=== PATIENT | female | born 2000 | race Caucasian/White ===

== ENCOUNTER 2023-03-21 08:46 | Outpatient (OUT) | payer MEDICAID, SELFPAY ==
--- NOTE | 2023-03-21 09:10 | ECG_ITS ---
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
--- NOTE | 2023-03-21 09:27 | P.GSHP_ITS ---
History of Present Illness History of Present Illness Chief complaint: Menorrhagia, Pelvic Pain, Dysmenorrhagia Narrative: Patient presents for preadmission testing. The patient reports since her last childbirth in August 2021, she has had unpredictable heavy vaginal bleeding. She states she also has daily lower pelvic pain. Review of Systems ROS Narrative REVIEW OF SYSTEMS: Negative except as stated in HPI, ten or more systems reviewed. Constitutional: No fever , chills, weakness ENT: No sore throat or epistaxis Cardiovascular: No edema, chest pain, palpitations, or activity intolerance Respiratory: No shortness of breath, cough, or wheezing Musculoskeletal: No joint pain or swelling Gastrointestinal: No abdominal pain, constipation, diarrhea, or vomiting Genitourinary: No dysuria or hematuria Neurological: No numbness, tingling, weakness, or headache Psychiatric: No mood changes PFSH PFS Medical History (Updated 03/21/23 @ 09:14 by Aletha Justice NP) Surgical History (Updated 03/21/23 @ 09:14 by Aletha Justice NP) Family History (Updated 03/21/23 @ 09:14 by Aletha Justice NP) Other Delayed recovery from anesthesia Family history of hypertension Family history of leukemia Family history of myocardial infarction Family history of stroke Social History (Updated 03/21/23 @ 09:11 by Aletha Justice NP) Within the past year, how often did you have a drink containing alcohol: monthly or less Smoking status: Never smoker Non-prescribed substance use: denies use Previous occupational history: [employer] Highest level of school completed/degree received: some college, no degree Meds Home Medications and Allergies Allergies Allergy/AdvReac Type Severity Reaction Status Date / Time No Known Drug Allergies Allergy Verified 03/21/23 09:10 Exam Narrative Exam Narrative: Constitutional: Awake, alert, comfortable, well-appearing, nontoxic, interactive, vital signs as charted Head: Normocephalic, atraumatic Neck: Supple, normal appearance, normal range of motion, no meningeal signs, no lymphadenopathy Respiratory: No respiratory distress, breath sounds clear Cardiovascular: Regular rate and rhythm, strong and regular heart tones Abdomen: Nontender, normal bowel sounds, soft, no CVA tenderness Musculoskeletal: Normal gait, no swelling or edema Skin: No rashes or induration, no lesions, only visible skin inspected Neuro: No neurological deficits, normal sensation Psychiatric: Oriented ?3, normal affect Assessment and Plan Assessment and Plan (1) Dysmenorrhea: (2) Menorrhagia: (3) Pelvic pain: Plan Diagnostic laparoscopy, possible MALLORY, possible FOE, possible bilateral salpingo- oophorectomy scheduled with Dr. Alfaro 04/01/2023.
== END 2023-03-21 08:47 | disposition home or self-care (01) ==
LOC: PST 08:47
PROVIDERS: Visit Provider Obstetrics & Gynecology
DX: Z01.810 Encounter for preprocedural cardiovascular examination (principal); Z01.812 Encounter for preprocedural laboratory examination; N92.1 Excessive and frequent menstruation with irregular cycle; N94.6 Dysmenorrhea, unspecified; R10.2 Pelvic and perineal pain
CPT/HCPCS: 93005; G0463

== ENCOUNTER 2023-04-01 09:57 | Day surgery (SDC) | payer MEDICAID, SELFPAY ==
[2023-03-21 09:11] VITALS: BP 118/86; PULSE 83; RESP 18; TEMP 36.6; O2SAT 97; BMI 31.9
[2023-04-01] VITALS (18 sets, daily range): BP systolic 86–132; BP diastolic 39–89; PULSE 69–101; RESP 14–21; TEMP 36.1–36.2; O2SAT 95–99; BMI 31.9
[2023-04-01 10:07] LABS: Basophils Percent Auto 0.4 % (0.2-2.0); Eosinophils Absolute Auto 0.3 10^3/uL (0.0-0.7); Eosinophils Percent Auto 5.8 % (0.9-7.0); Hematocrit 42.3 % (36.0-48.0); Hemoglobin 14.1 g/dL (12.0-16.0); Immature Granulocytes Abs Auto 0.03 10^3/uL (0.00-0.03); Immature Granulocytes Pct Auto 0.6 % (0.0-0.5); Lymphocytes Absolute Auto 1.4 10^3/uL (1.2-3.8); Lymphocytes Percent Auto 26.7 % (20.5-60.0); Mean Corpuscular HGB Conc 33.3 g/dL (29.9-35.2); Mean Corpuscular Hemoglobin 30.1 pg (26.7-34.0); Mean Corpuscular Volume 90.2 fL (81.0-99.0); Mean Platelet Volume 8.6 fL (9.5-13.5); Monocytes Absolute Auto 0.4 10^3/uL (0.3-0.8); Monocytes Percent Auto 7.6 % (1.7-12.0); Neutrophils Absolute Auto 3.2 10^3/uL (1.4-6.5); Neutrophils Percent Auto 58.9 % (43.0-75.0); Platelet Count 212 10^3/uL (150-450); Red Blood Count 4.69 10^6/uL (4.20-5.40); Red Cell Distribution Width 12.5 % (11.0-15.0); White Blood Count 5.4 10^3/uL (4.0-11.0)
[2023-04-01 10:28] LABS: HCG Quantitative <1 mIU/mL
[2023-04-01] MEDS: LACTATED RINGER'S SOLUTION 1,000 ML 50 ML IV ×2 (10:39→13:25)
--- NOTE | 2023-04-01 12:22 | PC.NURSE ---
50 CC CLEAR YELLOW URINE FROM CATHETER
[2023-04-01] MEDS: MEPERIDINE HCL/PF 25 MG/ML VIAL IVP (12:36)
--- NOTE | 2023-04-01 12:43 | PM.ONB ---
Brief Operative Note Date of procedure: 04/01/23 Pre-op diagnosis: pelvic pain Post-op diagnosis: same Procedure: PROCEDURE: The patient was taken back to the Operating Room where she was placed in dorsal lithotomy position after given general anesthesia. The patient was prepped and draped in normal sterile fashion. A sponge stick was placed into the patient's vagina. Attention was turned to the patient's abdomen, where a small umbilical incision was made. The fascia was tented using Kaleigh clamps and the fascia was entered sharply. Confirmation of intraabdominal placement of the 10 mm port was confirmed under direct visualization using a laparoscope. The patient's abdomen was then insufflated using CO2 gas with approximately 4 liters. A second port was placed left laterally, this was done under direct visualization with a 5 mm port. Survey of the patient's abdomen demonstrated normal liver and gallbladder. Survey of the patient's pelvic anatomy demonstrated normal appearing ovaries and tubes as well as normal appearing uterus. No endometrial implants could be noted, no evidence of any pelvic disease was seen, normal appearing pelvic cavity. All instruments were removed from the patient's abdomen. The patient's abdomen was deinsufflated of CO2 gas. The patient tolerated the procedure well. Sponge stick was removed from the patient's vagina. The patient's infraumbilical fascia was closed using #0 Vicryl on a GI needle. The patient's skin was closed laterally and infraumbilically using 4-0 Vicryl. The patient tolerated the procedure well. Sponge, lap and needle counts were correct x 2. The patient was taken to Recovery Room in stable condition.Clips from prior surgery noted adhered to bladder, the clips were grasped and gently removed Anesthesia: ZENY Surgeon: Nasir Alfaro Knowledge Management Consultant: Urmila Kohler Estimated blood loss (mL): 10 Pathology: none sent Condition: stable Disposition: PACU
[2023-04-01] MEDS: HYDROMORPHONE HCL 0.5 MG/0.5 ML SYRINGE IV ×2 (12:44→13:10)
[2023-04-01] MEDS: HYDROCODONE/ACETAMINOPHEN 5-325 MG TABLET 1 TAB PO ×2 (13:05→14:22)
[2023-04-01] MEDS: PROMETHAZINE HCL 25 MG TABLET PO (13:56)
[2023-04-01] MEDS: PROMETHAZINE HCL 25 MG/ML VIAL 12.5 MG IV (14:22)
== END 2023-04-01 14:48 | disposition home or self-care (01) ==
PROVIDERS: Visit Provider Obstetrics & Gynecology
PROC: (CPT 840; principal; 2023-04-01 11:25)
DX: R10.2 Pelvic and perineal pain (principal); N94.6 Dysmenorrhea, unspecified; N92.1 Excessive and frequent menstruation with irregular cycle
CPT/HCPCS: 49320; 36415; 84702; 85025; J1170; J2704

== ENCOUNTER 2023-11-28 12:10 | Outpatient (OUT) | payer OTHER, SELFPAY | END 2023-11-28 12:11 | disposition home or self-care (01) | PROVIDERS: Visit Provider Obstetrics & Gynecology | DX: Z01.818 Encounter for other preprocedural examination (principal); Z30.2 Encounter for sterilization ==

== ENCOUNTER 2023-12-09 07:58 | Day surgery (SDC) | payer OTHER, SELFPAY ==
[2023-11-28 12:53] VITALS: BP 115/78; PULSE 76; RESP 16; TEMP 36.2; O2SAT 99; BMI 34.8
[2023-12-09] VITALS (16 sets, daily range): BP systolic 100–152; BP diastolic 53–95; PULSE 55–95; TEMP 36.1–36.4; O2SAT 85–100; BMI 34.8
--- OUTSIDE RECORDS SUMMARY | 2023-12-09 08:04 | XMS_ITS | CCD ---
Author Organization [facility] Care Team Providers Care Cable Weaver Name Role Phone DOMINIC ., DR PAREDES Admitting Unavailable DOMINIC ., DR PAREDES Attending Unavailable ALMA, DR BAY Primary Care Unavailable DOMINIC ., DR PAREDES Consulting Unavailable DOMINIC ., DR PAREDES Admitting Unavailable DOMINIC ., DR PAREDES Attending Unavailable ALMA, DR BAY Primary Care Unavailable DOMINIC ., DR PAREDES Consulting Unavailable DOMINIC ., DR PAREDES Admitting Unavailable DOMINIC ., DR PAREDES Attending Unavailable ALMA, DR BAY Primary Care Unavailable Nahed Beach Consulting Unavailable DOMINIC ., DR PAREDES Consulting Unavailable ALMA, DR BAY Primary Care Unavailable JESS, DR WOODY Nuno Admitting Unavailable MERCADO, DR WOODY Nuno Attending Unavailable JESS, DR WOODY Nuno Consulting Unavailable ALMA, DR BAY Primary Care Unavailable HAY ., DR WILSON Admitting Unavailable HAY ., DR WILSON Attending Unavailable ZIEBER, DR ASHLEY Nuno Consulting Unavailable HAY ., DR WILSON Consulting Unavailable ALMA, DR BAY Primary Care Unavailable HAY ., DR WILSON Admitting Unavailable HAY ., DR WILSON Attending Unavailable HAY ., DR WILSON Consulting Unavailable PETER HOPPER Consulting Unavailable Lorin Christina Unavailable Urmial Osborn Unavailable Ezra Marquez MD Primary Care Provider IRVING JOHNSON Attending Unavailable DOMINICLENA Attending Unavailable DOMINICLENA Attending Unavailable Allergies Allergy Classification Reported Allergen(s) Allergy Type Date of Onset Reaction(s) Facility (1 source) butylvinal Drug Allergy [facility] Repository (1 source) Desonide Drug Allergy [facility] (2 sources) vinyl gloves Propensity to adverse reactions anaphylaxis [facility] Other Medications Current Medications Medication Drug Class(es) Dates Sig (Normalized) Sig (Original) Ethinyl Estradiol / Levonorgestrel (4 sources) Progestin, Estrogen, Progestin-containin g Intrauterine Device Start: 01-05-2023 take 1 tablet by mouth in the morning Jolessa 0.15-0.03 MG tablet Take 1 tablet by mouth in the morning. 0 01/05/2023 Active Setlakin 0.15-0. 03 MG Oral for 91 Days Active fluticasone propionate 0.05 mg/actuat metered dose nasal spray (3 sources) Corticosteroid Start: 04-09-2020 take 1 spray(s) nasal route once daily Fluticasone Propionate 50 MCG/ACT 1 spray in each nostril Nasally Once a day for 10 days Jul, Active Completed/Discontinued Medications Medication Drug Class(es) Dates Sig (Normalized) Sig (Original) acetaminophen 325 mg / HYDROcodone bitartrate 5 mg oral tablet (2 sources) Opioid Agonist take 1 tablet by mouth every four hours HYDROcodone-Acetam inophen 5-325 MG TAKE 1 TABLET BY MOUTH EVERY 4 HOURS Oral for 3 Days Not-Taking azithromycin 500 mg oral tablet (2 sources) Macrolide Antimicrobial Azithromycin 500 MG Oral for 1 Days Not-Taking cetirizine hydrochloride 10 mg oral tablet (2 sources) Histamine-1 Receptor Antagonist Start: 04-09-2020 take 1 tablet by mouth every twenty-four hours Cetirizine HCl 10 MG 1 tablet Orally Once a day for 30 day(s) Mar, Not-Taking doxycycline hyclate 100 mg oral capsule (2 sources) Tetracycline-class Drug Doxycycline Hyclate 100 MG Oral for 14 Days Not-Taking Ethinyl Estradiol / Etonogestrel (2 sources) Progestin, Estrogen NuvaRing Not-Taking fluconazole 150 mg oral tablet (2 sources) Azole Antifungal Fluconazole 150 MG Oral for 6 Days Not-Taking ibuprofen 800 mg oral tablet (2 sources) Nonsteroidal Anti-inflammatory Drug Ibuprofen 800 MG Oral for 14 Days Not-Taking Ibuprofen 800 MG Oral for 14 Days Not-Taking metroNIDAZOLE 500 mg oral tablet (2 sources) Nitroimidazole Antimicrobial metroNIDAZOLE 500 MG Oral for 10 Days Not-Taking ondansetron 4 mg oral tablet (2 sources) Serotonin-3 Receptor Antagonist Ondansetron HCl 4 MG Oral for 14 Days Not-Taking predniSONE 20 mg oral tablet (2 sources) Start: 05-15-20 take 1 tablet by mouth every twelve hours predniSONE 20 MG 1 tablet Orally bid for 5 day(s) May, Not-Taking Problems Active Problems Problem Classification Problem Date Documented Date Episodic/Chronic Abdominal pain (6 sources) Left lower quadrant pain; Translations: [Unspecified abdominal pain] Onset: 10-21-2022 Episodic Contraceptive and procreative management (5 sources) Presence of (intrauterine) contraceptive device; Translations: [Patient encounter status] Onset: 10-25-2022 10-13-2023 Episodic Headache; including migraine (6 sources) Migraine; Translations: [Migraine, unspecified, not intractable, without status migrainosus] Onset: 09-14-2023 09-14-2023 Chronic Immunizations and screening for infectious disease (1 source) Encounter for screening for human papillomavirus (HPV); Translations: [ENC SCREENING HUMAN PAPILLOMAVIRUS] Onset: 01-06-2023 Episodic Inflammatory diseases of female pelvic organs (2 sources) Vulvovaginitis; Translations: [Acute vaginitis] Onset: 09-14-2023 09-14-2023 Episodic Menstrual disorders (5 sources) Excessive and frequent menstruation with irregular cycle; Translations: [Dysmenorrhea] Onset: 01-06-2023 09-14-2023 Chronic Nausea and vomiting (2 sources) Nausea and vomiting; Translations: [Nausea with vomiting, unspecified] Onset: 09-14-2023 09-14-2023 Episodic Noninfectious gastroenteritis (1 source) Noninfective gastroenteritis and colitis, unspecified; Translations: [NONINFECTIVE GE AND COLITIS UNS] Onset: 10-25-2022 Episodic Other aftercare (1 source) Other moth exterminator (current) drug therapy; Translations: [OTH RESIDENTIAL CURRENT DRUG THERAPY] Onset: 10-25-2022 Episodic Other connective tissue disease (2 sources) Fibromyalgia; Translations: [Fibromyalgia] Onset: 09-14-2023 09-14-2023 Episodic Other female genital disorders (2 sources) Pain on movement of cervix; Translations: [Unspecified condition associated with female genital organs and menstrual cycle] Onset: 09-14-2023 09-14-2023 Episodic Other nervous system disorders (2 sources) Spasmodic movement; Translations: [Fasciculation] Onset: 09-14-2023 09-14-2023 Episodic Other screening for suspected conditions (not mental disorders or infectious disease) (4 sources) Encounter for screening for malignant neoplasm of cervix; Translations: [ENC SCREENING MALIG NEOPLASM CERV] Onset: 01-05-2023 Episodic Other upper respiratory infections (3 sources) Acute pharyngitis, unspecified; Translations: [Acute upper respiratory infection, unspecified] Episodic Residual codes; unclassified (2 sources) Insomnia; Translations: [Insomnia, unspecified] Onset: 09-14-2023 09-14-2023 Episodic Spondylosis; intervertebral disc disorders; other back problems (2 sources) Instability of lumbosacral joint; Translations: [Spinal instabilities, lumbosacral region] Onset: 09-14-2023 09-14-2023 Episodic Unclassified (2 sources) COUGH, UNSPECIFIED; Translations: [COUGH, UNSPECIFIED] Onset: 08-27-2022 Viral infection (1 source) COVID-19; Translations: [COVID-19] Onset: 08-27-2022 Past or Other Problems Problem Classification Problem Date Documented Da te Episodic/Chronic Chronic obstructive pulmonary disease and bronchiectasis (1 source) Bronchitis, not specified as acute or chronic; Translations: [BRONCHITIS NOT SPEC ACUTE/CHRON] Onset: 08-25-2022 Episodic Unclassified (1 source) COUGH, UNSPECIFIED; Translations: [COUGH, UNSPECIFIED] Onset: 08-25-2022 Results Test Name Value Interpretation Reference Range Facility HCG ( test) Ql (U)o n 10-18-2023 Interpretation and review of laboratory results Normal [facility] re Preg Test, Ur Negative [facility] Quick Strepon 05-15-2023 S. pyogenes Org specific cx Ql (Throat) Negative [facility] Other Quick Strep [facility] Other US PELVIS AND TRANSVAGon US PELVIS AND TRANSVAG EXAMINATION: US PELVIS AND TRANSVAG HISTORY: Excessive menstruation with irregular cycle COMPARISON: No relevant comparison available. FINDINGS: Transabdominal and transvaginal images The uterus is normal in size, contour and myometrial echotexture measuring 7.4 x 3.6 x 4.1 cm, anteverted. The endometrium measures 3 mm, normal. The right ovary is normal in appearance measuring 2.4 x 1.7 x 1.4 cm. Normal color and Doppler flow. The left ovary is normal in appearance measuring 1.6 x 2.2 x 1.8 cm. Normal color Doppler flow No free fluid IMPRESSION: Normal exam Electronically authenticated by: NAHED BEACH Date: 2023-01-21 10:33 [facility] PAP ACOG PANEL 2: 21 to 29on 01-13-2023 . . Normal [facility] Comment on above: Performed By: #### [id number] #### [facility] [address] [place] [address] Dr. Apollo Rey Age Gdln ACOG Testing - [facility] Comment on above: Performed By: #### [id number] #### [facility] [address] [place] [address] Dr. Apollo Rey DIAGNOSIS: Comment [facility] Comment on above: Result Comment: NEGA TIVE FOR INTRAEPITHELIAL LESION OR MALIGNANCY. Performed By: #### [id number] #### [facility] [address] [place] [address] Dr. Apollo Rey Methodology: Comment [facility] Comment on above: Result Comment: This liquid based ThinPrep(R) pap test was screened with the use of an image guided system. Performed By: #### [id number] #### [facility] [address] [place] [address] Dr. Apollo Rey Note: Comment [facility] Comment on above: Result Comment: The Pap smear is a screening test designed to aid in the detection of premalignant and malignant conditions of the uterine cervix. It is not a diagnostic procedure and should not be used as the sole means of detecting cervical cancer. Both false-positive and false-negative reports do occur. . Performed By: #### [id number] #### [facility] [address] [place] [address] Dr. Apollo Rey Performed by: Comment Normal [facility] [place] Comment on above: Result Comment: David Johnson, Garage Manager (ASCP) Performed By: #### [id number] #### [facility] [address] [place] [address] Dr. Apollo Rey Reflex Criteria: Comment Normal [facility] Comment on above: Result Comment: The HPV DNA reflex criteria were not met with this specimen result therefore, no HPV testing was performed. . Performed By: #### [id number] #### [facility] [address] [place] [address] Dr. Apollo Rey Specimen adequacy: Comment Normal [facility] Comment on above: Result Comment: Sati sfactory for evaluation. Endocervical and/or squamous metaplastic cells (endocervical component) are present. Performed By: #### [id number] #### [facility] [address] [place] [address] Dr. Apollo Rey CBC AUTO DIFFon 01-05-2023 BASO # 0.0 103/ul Normal 0.0-0.1 [facility] Comment on above: Performed By: #### C BC #### [facility] [address] [place] [address] Dr. Apollo Rey Basophils/100 WBC (Bld) 0.5 % Normal 0.2-2.0 [facility] Comment on above: Performed By: #### C BC #### [facility] [address] [place] [address] Dr. Apollo Rey EO # 0.3 103/ul Normal 0.0-0.7 [facility] Comment on above: Performed By: #### C BC #### [facility] [address] [place] [address] Dr. Apollo Rey Eosinophils/100 WBC (Bld) 3.5 % Normal 0.9-7.0 [facility] Comment on above: Performed By: #### C BC #### [facility] [address] [place] [address] Dr. Apollo Rey Erythrocyte distribution width (RBC) [Ratio] 12.1 % Normal 11.0-15.0 [facility] Comment on above: Performed By: #### C BC #### [facility] [address] [place] [address] Dr. Apollo Rey Hematocrit (Bld) [Volume fraction] 41.0 % Normal 36.0-48.0 [facility] Comment on above: Performed By: #### C BC #### [facility] [address] [place] [address] Dr. Apollo Rey Hemoglobin (Bld) [Mass/Vol] 13.8 g/dL Normal 12.0-16.0 [facility] Comment on above: Performed By: #### C BC #### [facility] [address] [place] [address] Dr. Apollo Rey IG # 0.03 10e3/ul Normal 0.00-0.03 [facility] Comment on above: Performed By: #### C BC #### [facility] [address] [place] [address] Dr. Apollo Rey IG % 0.4 % Normal 0.0-0.5 [facility] Comment on above: Performed By: #### C BC #### [facility] [address] [place] [address] Dr. Apollo Rey LYMPH # 1.9 103/ul Normal 1.2-3.8 [facility] Comment on above: Performed By: #### C BC #### [facility] [address] [place] [address] Dr. Apollo Rey Lymphocytes/100 WBC (Bld) 23.0 % Normal 20.5-60.0 [facility] Comment on above: Performed By: #### C BC #### [facility] [address] [place] [address] Dr. Apollo Rey MANUAL DIFF REQ NO Normal [facility] Comment on above: Performed By: #### C BC #### [facility] [address] [place] [address] Dr. Apollo Rey MCH (RBC) [Entitic mass] 30.4 pg Normal 26.7-34.0 [facility] Comment on above: Performed By: #### C BC #### [facility] [address] [place] [address] Dr. Apollo Rey MCHC (RBC) [Mass/Vol] 33.7 g/dL Normal 29.9-35.2 [facility] Comment on above: Performed By: #### C BC #### [facility] [address] [address] [address] Apollo Rey MCV (RBC) [Entitic vol] 90.3 fL Normal 81.0-99.0 [facility] Comment on above: Performed By: #### C BC #### [facility] [address] [place] [address] Dr. Apollo Rey MONO # 0.5 103/ul Normal 0.3-0.8 [facility] Comment on above: Performed By: #### C BC #### [facility] [address] [place] [address] Dr. Apollo Rey Monocytes/100 WBC (Bld) 6.3 % Normal 1.7-12.0 [facility] Comment on above: Performed By: #### C BC #### [facility] [address] [place] [address] Dr. Apollo Rey NEUT # 5.3 103/ul Normal 1.4-6.5 [facility] Comment on above: Performed By: #### C BC #### [facility] [address] [place] [address] Dr. Apollo Rey Neutrophils/100 WBC (Bld) 66.3 % Normal 43.0-75.0 [facility] Comment on above: Performed By: #### C BC #### [facility] [address] [address] [address] Apollo Rey Platelet mean volume (Bld) [Entitic vol] 9.0 fL Critically low 9.5-13.5 [facility] Comment on above: Performed By: #### C BC #### [facility] [address] [place] [address] Dr. Apollo Rey PLT 239 103/ul Normal 150-450 [facility] Comment on above: Performed By: #### C BC #### [facility] [address] [place] [address] Dr. Apollo Rey RBC 4.54 106/ul Normal 4.20-5.40 [facility] Comment on above: Performed By: #### C BC #### [facility] [address] [place] [address] Dr. Apollo Rey WBC 8.0 103/ul Normal 4.0-11.0 [facility] Comment on above: Performed By: #### C BC #### [facility] [address] [place] [address] Dr. Apollo Rey Cytology Cervical or vaginal smear or scraping studyon 01-05-2023 [facility] FREE T4on 01-05-2023 Free T4 [Mass/Vol] 0.95 ng/dL Normal 0.76-1.46 [facility] Comment on above: Performed By: #### F T4 #### [facility] [address] [place] [address] Dr. Apollo Rey GLYCOHEMOGLOBIN A1Con 2022 ADA RECOMMENDATION SEE BELOW Normal [facility] Comment on above: Result Comment: ADA RECOMMENDED LIMIT 4.0 - 6.0 ADA THERAPEUTIC TARGET < 7.0 ACTION SUGGESTED > 7.0 Performed By: #### [id number] #### [facility] [address] [place] [address] Dr. Apollo Rey Glucose [Mass/Vol] 105 mg/dL Normal [facility] Comment on above: Performed By: #### [id number] #### [facility] [address] [place] [address] Dr. Apollo Rey HbA1c (Bld) [Mass fraction] 5.3 % Normal 4.5-6.2 [facility] Comment on above: Performed By: #### 4 [id number] #### [facility] [address] [place] [address] Dr. Apollo Rey PROTIMEon 01-05-2023 INR Coag (PPP) [Relative time] 0.95 {INR} Normal [facility] Comment on above: Performed By: #### 4 [id number] #### [facility] [address] [place] [address] Dr. Apollo Rey INR GUIDELINES SEE BELOW Normal [facility] Comment on above: Result Comment: RAY RED INR: 2.0 - 3.0 CONDITIONS NOT LISTED BELOW 2.5 - 3.5 FOR PROSTHETIC HEART VALVE REPLACEMENT 2.5 - 3.5 RECURRENT THROMBOSIS Performed By: #### 4 [id number] #### [facility] [address] [place] [address] Dr. Apollo Rey PT Coag (PPP) [Time] 10.1 s Normal 9.0-11.6 [facility] Comment on above: Performed By: #### 4 [id number] #### [facility] [address] [place] [address] Dr. Apollo Rey PTTon 01-05-2023 aPTT Coag (Bld) [Time] 29.0 s Normal 22.3-36.2 [facility] Comment on above: Performed By: #### 4 [id number] #### [facility] [address] [place] [address] Dr. Apollo Rey TSHon 01-05-2023 TSH 1.102 uIU/mL Normal 0.358-3.740 [facility] Comment on above: Performed By: #### T SH #### [facility] [address] [place] [address] Dr. Apollo Rey CBC AUTO DIFFon 10-21-2022 BASO # 0.0 103/ul Normal 0.0-0.1 [facility] Comment on above: Performed By: #### C BC #### [facility] [address] [place] [address] Dr. Apollo Rey Basophils/100 WBC (Bld) 0.4 % Normal 0.2-2.0 [facility] Comment on above: Performed By: #### C BC #### [facility] [address] [place] [address] Dr. Apollo Rey EO # 0.1 103/ul Normal 0.0-0.7 [facility] Comment on above: Performed By: #### C BC #### [facility] [address] [place] [address] Dr. Apollo Rey Eosinophils/100 WBC (Bld) 1.5 % Normal 0.9-7.0 [facility] Comment on above: Performed By: #### C BC #### [facility] [address] [place] [address] Dr. Apollo Rey Erythrocyte distribution width (RBC) [Ratio] 12.9 % Normal 11.0-15.0 [facility] Comment on above: Performed By: #### C BC #### [facility] [address] [place] [address] Dr. Apollo Rey Hematocrit (Bld) [Volume fraction] 38.2 % Normal 36.0-48.0 [facility] Comment on above: Performed By: #### C BC #### [facility] [address] [place] [address] Dr. Apollo Rey Hemoglobin (Bld) [Mass/Vol] 13.5 g/dL Normal 12.0-16.0 [facility] Comment on above: Performed By: #### C BC #### [facility] [address] [place] [address] Dr. Apollo Rey IG # 0.02 10e3/ul Normal 0.00-0.03 [facility] Comment on above: Performed By: #### C BC #### [facility] [address] [place] [address] Dr. Apollo Rey IG % 0.3 % Normal 0.0-0.5 [facility] Comment on above: Performed By: #### C BC #### [facility] [address] [place] [address] Dr. Apollo Rey LYMPH # 2.0 103/ul Normal 1.2-3.8 [facility] Comment on above: Performed By: #### C BC #### [facility] [address] [place] [address] Dr. Apollo Rey Lymphocytes/100 WBC (Bld) 26.3 % Normal 20.5-60.0 [facility] Comment on above: Performed By: #### C BC #### [facility] [address] [place] [address] Dr. Apollo Rey MANUAL DIFF REQ NO Normal [facility] Comment on above: Performed By: #### C BC #### [facility] [address] [address] [address] Apollo Rey MCH (RBC) [Entitic mass] 30.8 pg Normal 26.7-34.0 [facility] Comment on above: Performed By: #### C BC #### [facility] [address] [address] [address] Apollo Rey MCHC (RBC) [Mass/Vol] 35.3 g/dL Critically high 29.9-35.2 [facility] Comment on above: Performed By: #### C BC #### [facility] [address] [address] [address] Apollo Rey MCV (RBC) [Entitic vol] 87.0 fL Normal 81.0-99.0 [facility] Comment on above: Performed By: #### C BC #### [facility] [address] [place] [address] Dr. Apollo Rey MONO # 0.5 103/ul Normal 0.3-0.8 [facility] Comment on above: Performed By: #### C BC #### [facility] [address] [place] [address] Dr. Apollo Rey Monocytes/100 WBC (Bld) 6.4 % Normal 1.7-12.0 [facility] Comment on above: Performed By: #### C BC #### [facility] [address] [place] [address] Dr. Apollo Rey NEUT # 4.9 103/ul Normal 1.4-6.5 [facility] Comment on above: Performed By: #### C BC #### [facility] [address] [place] [address] Dr. Apollo Rey Neutrophils/100 WBC (Bld) 65.1 % Normal 43.0-75.0 [facility] Comment on above: Performed By: #### C BC #### [facility] [address] [place] [address] Dr. Apollo Rey Platelet mean volume (Bld) [Entitic vol] 8.8 fL Critically low 9.5-13.5 [facility] Comment on above: Performed By: #### C BC #### [facility] [address] [place], [place] [address] Dr. Apollo Rey PLT 206 103/ul Normal 150-450 [facility] Comment on above: Performed By: #### C BC #### [facility] [address] [place], [place] [address] Dr. Apollo Rye RBC 4.39 106/ul Normal 4.20-5.40 [facility] Comment on above: Performed By: #### C BC #### [facility] [address] [place], [place] [address] Dr. Apollo Rey WBC 7.5 103/ul Normal 4.0-11.0 [facility] Comment on above: Performed By: #### C BC #### [facility] [address] [place], [place] [address] ABD/PELV W CONon 10-21-[address] ABD/PELV W CON EXAM: CT SCAN OF THE ABDOMEN AND PELVIS WITH IV CONTRAST DATE OF EXAM: 10/21/2022 3:19 PM EST HISTORY: Left lower quadrant pain in a 22-year-old female COMPARISON: None. TECHNIQUE: CT examination of the abdomen and pelvis was performed following the intravenous administration of IV contrast. CT dose lowering techniques were used, to include: automated exposure control, adjustment for patient size, and/or use of iterative reconstruction. Contrast: 100 mL Omnipaque 300 FINDINGS: Lines and Tubes: None Lower Chest: Normal Free Air: None. Liver: Normal Gallbladder: Normal Common Bile Duct: Normal Pancreas: Normal Spleen: Normal Adrenal Glands: Right: Normal Left: Normal Kidneys: Right Kidney: Normal. Right Ureter: Normal. Left Kidney: Normal. Left Ureter: Normal. GI Tract: Stomach: Normal Small Bowel: Normal Appendix: Normal on axial image 102 of series 6 Large Bowel: Normal Mesentery/Peritoneum : Normal Vasculature: Aorta: Normal. IVC: Normal. Jayleen Vein: Normal. Retroperitoneum: Normal Abdominal/Pelvic Wall: Normal Bladder: Normal Reproductive: Uterus is anteflexed and tilted towards the left side of the pelvis. IUD is demonstrated. Right ovary demonstrates a fluid attenuating region that measures approximately 12.5 mm most likely a dominant follicle. Ovaries otherwise appear within normal limits allowing for volume averaging with bowel. Musculoskeletal: Normal. Free Fluid: None. IMPRESSION: 1. Uterus contains an IUD appears to be in adequate position. 2. Area decreased attenuation in the right ovary most likely represents a dominant follicle. However, please correlate with patient's beta hCG. If clinically indicated transvaginal ultrasound with spectral Doppler may help better delineate. 3. Normal appendix. 4. Otherwise unremarkable CT of the abdomen and pelvis for acute pathology. Electronically authenticated by: PETER HOPPER Date: 2022-10-21 17:45 Normal [facility] ER URINE PROFILEon 3 Bilirubin Ql (U) Negative Normal NEGATIVE The [facility] Comment on above: Performed By: #### [id number] #### [facility] [address] [place] [address] Dr. Apollo Rey Clarity (U) CLEAR Normal CLEAR [facility] Comment on above: Performed By: #### [id number] #### [facility] [address] [place] [address] Dr. Apollo Rey Color (U) LT. YELLOW Normal YELLOW [facility] Comment on above: Performed By: #### [id number] #### [facility] [address] [address] [address] Apollo TAVAREZ A micrscopic examination will be performed if indicated. Normal [facility] Comment on above: Performed By: #### [id number] #### [facility] [address] [address] [address] Apollo Rey Glucose Ql (U) Negative Normal NEGATIVE [facility] Comment on above: Performed By: #### 4 [id number] #### [facility] [address] [address] [address] Apollo Rey Hemoglobin Ql (U) Negative Normal NEGATIVE The [facility] Comment on above: Performed By: #### 4 [id number] #### [facility] [address] [place] [address] Dr. Apollo Rey Ketones Ql (U) Negative Normal NEGATIVE [facility] Comment on above: Performed By: #### 4 [id number] #### [facility] [address] [place] [address] Dr. Apollo Rey LEUKOCYTES TRACE Abnormal NEGATIVE [facility] Comment on above: Performed By: #### [id number] #### [facility] [address] [place] [address] Dr. Apollo Rey Nitrite Ql (U) Negative Normal NEGATIVE [facility] Comment on above: Performed By: #### 4 [id number] #### [facility] [address] [place] [address] Dr. Apollo Rey pH (U) 6.0 [pH] Normal 5-9 [facility] Comment on above: Performed By: #### 4 [id number] #### [facility] [address] [place] [address] Dr. Apollo Rey SPEC GRAVITY 1.020 Normal 1.005-<=1.025 [facility] Comment on above: Performed By: #### 4 [id number] #### [facility] [address] [place] [address] Dr. Apollo Rey UA PROTEIN Negative Normal NEGATIVE/ TRACE [facility] Comment on above: Performed By: #### 4 [id number] #### [facility] [address] [place] [address] Dr. Apollo Rey UR MICRO IND NOT INDICATED Normal [facility] Comment on above: Performed By: #### 4 [id number] #### [facility] [address] [place] [address] Dr. Apollo Rey Urobilinogen Qn (U) 0.2 {Ирина'U}/dL Normal 0.2 - 1. 0 [facility] Comment on above: Performed By: #### 4 [id number] #### [facility] [address] [place] [address] Dr. Apollo Rey URon 10-21-2022 , QUAL Negative Normal NEGATIVE [facility] Comment on above: Performed By: #### P REGU #### [facility] [address] [place] [address] Dr. Apollo Rey PROF 14(COMP METB)on 023 Albumin [Mass/Vol] 4.1 g/dL Normal 3.4-5.0 [facility] Comment on above: Performed By: #### C MP #### [facility] [address] [place] [address] Dr. Apollo Rey Albumin/Globulin [Mass ratio] 1.2 {ratio} Normal [facility] Comment on above: Performed By: #### C MP #### [facility] [address] [address] [address] Apollo Rey ALP [Catalytic activity/Vol] 85 U/L Normal 46-116 [facility] Comment on above: Performed By: #### C MP #### [facility] [address] [address] [address] Apollo Rey ALT [Catalytic activity/Vol] 18 U/L Normal 14-59 [facility] Comment on above: Performed By: #### C MP #### [facility] [address] [place] [address] Dr. Apollo Rey Anion gap [Moles/Vol] 12.7 mmol/L Normal [facility] Comment on above: Performed By: #### C MP #### [facility] [address] [place] [address] Dr. Apollo Rey AST [Catalytic activity/Vol] 14 U/L Critically low 15-37 [facility] Comment on above: Performed By: #### C MP #### [facility] [address] [place] [address] Dr. Apollo Rey Bilirubin [Mass/Vol] 0.3 mg/dL Normal 0.2-1.0 [facility] Comment on above: Performed By: #### C MP #### [facility] [address] [place] [address] Dr. Apollo Rey Calcium [Mass/Vol] 8.8 mg/dL Normal 8.5-10.1 [facility] Comment on above: Performed By: #### C MP #### [facility] [address] [place] [address] Dr. Apollo Rey Chloride [Moles/Vol] 103 mmol/L Normal 98-107 [facility] Comment on above: Performed By: #### C MP #### [facility] [address] [address] [address] Apollo Rey CO2 [Moles/Vol] 24.9 mmol/L Normal 21.0-32.0 [facility] Comment on above: Performed By: #### C MP #### [facility] [address] [place] [address] Dr. Apollo Rey Creatinine [Mass/Vol] 0.72 mg/dL Normal 0.55-1.02 [facility] Comment on above: Performed By: #### C MP #### [facility] [address] [place] [address] Dr. Apollo Rey EGFR-AF CZECH >60 Normal >=60 [facility] Comment on above: Performed By: #### C MP #### [facility] [address] [place] [address] Dr. Apollo Rey EGFR-NON AF CZECH >60 Normal >=60 [facility] Comment on above: Performed By: #### C MP #### [facility] [address] [place] [address] Dr. Apollo Rey Globulin (S) [Mass/Vol] 3.4 g/dL Normal [facility] Comment on above: Performed By: #### C MP #### [facility] [address] [place] [address] Dr. Aopllo Rey Glucose [Mass/Vol] 96 mg/dL Normal 74-106 [facility] Comment on above: Performed By: #### C MP #### [facility] [address] [place] [address] Dr. Apollo Rey Potassium [Moles/Vol] 3.6 mmol/L Normal 3.5-5.1 [facility] Comment on above: Performed By: #### C MP #### [facility] [address] [place] [address] Dr. Apollo Rey Protein [Mass/Vol] 7.5 g/dL Normal 6.4-8.2 [facility] Comment on above: Performed By: #### C MP #### [facility] [address] [place] [address] Dr. Apollo Rey Sodium [Moles/Vol] 137 mmol/L Normal 136-145 [facility] Comment on above: Performed By: #### C MP #### [facility] [address] [address] [address] Apollo Rey Urea nitrogen [Mass/Vol] 9.0 mg/dL Normal 7.0-18.0 [facility] Comment on above: Performed By: #### C MP #### [facility] [address] [address] [address] Apollo Rey Urea nitrogen/Creatinine [Mass ratio] 12.5 mg/mg Normal [facility] Comment on above: Performed By: #### C MP #### [facility] [address] [place] [address] Dr. Apollo Rey Covid-19 PCR (CVDTB)on 08-12 SARS-CoV-2 (COVID-19) RNA TAYLOR+probe Ql (Unsp spec) Detected Critically abnormal NOT DETECTED [facility] Comment on above: Result Comment: This test is not yet approved or cleared by the [place] FDA. When there are no FDA-approved or cleared tests available, and other criteria are met, FDA can make tests available under an emergency access mechanism called an Emergency Use Authorization (EUA). The EUA for this test is supported by the [place] of Health and Human Service's declaration that circumstances exist to justify the emergency use of in vitro diagnostics for the detection and/or diagnosis of the virus that causes COVID-19. This EUA will remain in effect for the duration of the COVID-19 declaration justifying emergency of IVDs, unless it is terminated or revoked by the FDA (after which the test may no longer be used). Performed By: #### C VDTBH #### [facility] [address] [address] [address] Apollo Rey XR CHEST 2 Von 08-25-2022 XR CHEST 2 V EXAMINATION: XR CHEST 2 V HISTORY: SHORTNESS OF BREATH COMPARISON: XR chest 12/03/2018 FINDINGS: LUNGS: No significant pulmonary parenchymal abnormalities. VASCULATURE: No increased pulmonary vasculature. PLEURA: No pneumothorax, effusion, or pleural thickening. CARDIAC: No cardiomegaly or cardiac silhouette abnormality. MEDIASTINUM: No visible mass or adenopathy. BONES: No fracture or visible bone lesion. OTHER: Negative. IMPRESSION: 1. No acute cardiopulmonary process. Electronically authenticated by: ASHLEY HIGHTOWER Date: 2022-08-25 11:56 Normal [facility] INFLUENZA A AND B AGon 08-23 INFLUENZA A AG Negative Normal NEGATIVE SEE COMMENT [facility] Comment on above: Performed By: #### I NFLUAB #### [facility] [address] [address] [address] Apollo Rey INFLUENZA B AG Negative Normal NEGATIVE SEE COMMENT [facility] Comment on above: Performed By: #### I NFLUAB #### [facility] [address] [place] [address] Dr. Apollo Rey INTERNAL CONTROLS Within Normal Limits Normal Wi thin Normal Limits [facility] Comment on above: Performed By: #### I NFLUAB #### [facility] [address] [place] [address] Dr. Apollo Rey Vital Signs Date Time Vital Sign Value Performing Clinician Facility 10-18-2023 14:15-0500 Body mass index (BMI) [Ratio] 34.36 kg/m2 DAVIDsTEA DO Work Phone: [facility] 10-18-2023 14:15-0500 Body weight 102.51 kg Lena Dominic DO Work Phone: [facility] 10-18-2023 14:15-0500 Diastolic blood pressure 78 mm[Hg] Lena Dominic DO Work Phone: [facility] 10-18-2023 14:15-0500 Systolic blood pressure 126 mm[Hg] Lena Dominic DO Work Phone: [facility] 08-11-2023 14:30-0500 Body height 172.72 cm Urmila Osborn Other [facility] Other 08-11-2023 14:30-0500 Body mass index (BMI) [Ratio] 33.75 kg/m2 Urmila Osborn Other [facility] Other 08-11-2023 14:30-0500 Body temperature 97.7 [degF] Urmila Saundersarney Other [facility] Other 08-11-2023 14:30-0500 Body weight 100.7 kg Urmila Saundersarney Other [facility] Other 08-11-2023 14:30-0500 Respiratory rate 18 /min Urmila Saundersarney Other [facility] Other 08-11-2023 14:30-0500 SaO2% (BldA) [Mass fraction] 98 % Urmila Saundersarney Other [facility] Other 05-15-2023 10:35-0400 Body height 172.72 cm Lorin Christina Other [facility] Other 05-15-2023 10:35-0400 Body mass index (BMI) [Ratio] 34.97 kg/m2 Lorin Christina Other [facility] Other 05-15-2023 10:35-0400 Body temperature 97.5 [degF] Lorin Pottermond Other [facility] Other 05-15-2023 10:35-0400 Body weight 104.33 kg Lorin Pottermond Other [facility] Other 05-15-2023 10:35-0400 Diastolic blood pressure 86 mm[Hg] Lorin Pottermond Other [facility] Other 05-15-2023 10:35-0400 Respiratory rate 18 /min Lorin Christina Other [facility] Other 05-15-2023 10:35-0400 SaO2% (BldA) [Mass fraction] 97 % Lorin Carri Other [facility] Other 05-15-2023 10:35-0400 Systolic blood pressure 134 mm[Hg] Lorin Christina Other [facility] Other Encounters Encounter Date Encounter Type Care Provider Facility Start: 11-14-2023 End: 11-14-2023 ambulatory LENA DOMINIC Not Available Start: 10-18-2023 End: 10-18-2023 ambulatory LENA DOMINIC Not Available Start: 10-18-2023 End: 10-18-2023 Office outpatient visit 15 minutes Lena Alfaro DO Work Phone: [facility] Comment on above: control counse ling; Request for sterilization Start: 09-15-2023 End: 09-15-2023 ambulatory IRVING JOHNSON Not Available Start: 08-11-2023 End: 08-11-2023 ambulatory Urmila Osborn Other [facility] Other Start: 08-11-2023 Office outpatient vi sit 25 minutes Urmila Osborn [facility] Start: 05-15-2023 End: 05-15-2023 ambulatory Lorin Christina Other [facility] Other Start: 05-15-2023 Office outpatient ne w 20 minutes Lorin Christina [facility] Start: 01-21-2023 End: 01-22-[address] LENA ALFARO . Facility: Start: 01-05-2023 End: 01-05-[address] LENA ALFARO . Facility:[facility] Start: 01-05-2023 End: 01-06-[address] LENA ALFARO . Facility:[facility] Start: 10-21-2022 End: 10-21-[address] EZRA MARQUEZ Facility:[facility] Start: 08-25-2022 End: 08-25-[address] EZRA MARQUEZ Facility:[facility] Start: 08-23-2022 End: 08-23-[address] EZRA MARQUEZ Facility:[facility] Procedures Date Procedure Procedure Detail Performing Clinician Start: 10-18-2023 Urine test visual color cmprsn meths [facility] DO Work Phone: Start: 01-05-2023 Cytp cerv/vag auto t hin layer prep mnl screen [facility] DO Work Phone: Plan of Treatment Date Care Activity Detail Author Start: 03-11-2024 Influenza vaccination Influenza Vacc ine (#1) [facility] Comment on above: Postponed from 05/13 (Other Patient Reasons) Start: 01-17-2024 End: 01-17-2024 Patient encounter procedure 01/17/2024 8:30 AM EDT Office Visit [facility] [address] [place] [id number] Lena Alfaro DO [address] [place] [address] [facility] Start: 11-14-2023 End: 11-14-2023 Patient encounter procedure 11/14/2023 2:20 PM EST Consult [facility] [address] [facility] [place] [phone] Lena Alfaro DO [address] [place] [address] [facility] Immunizations Immunization Date Immunization Notes Care Provider [facility] 09-03-2021 diphtheria, tetanus tox[facility] and [facility]uss[facility] 03-19-2013 human papilloma viru s vaccine, quadrivalent [facility] 10-16-2012 human papilloma viru s vaccine, quadrivalent Lena Dominic DO Work Phone: [facility] 08-14-2012 human papilloma viru s vaccine, quadrivalent Lena Dominic DO Work Phone: [facility] 08-14-2012 meningococcal polysaccharide (groups A, C, Y and W-135) diphtheria toxoid conjugate vaccine (MCV4P) Lena Dominic DO Work Phone: [facility] 08-14-2012 tetanus toxoid, redu severiano diphtheria toxoid, and acellular pertussis vaccine, adsorbed Lena Dominic DO Work Phone: [facility] 11-23-2010 varicella virus vaccine Core y Dominic DO Work Phone: [facility] 03-03-2006 diphtheria, tetanus toxoids and acellular pertussis vaccine, unspecified formulation Lena Dominic DO Work Phone: [facility] 03-03-2006 measles, mumps and r ubella virus vaccine Lena Dominic DO Work Phone: [facility] 03-03-2006 poliovirus vaccine, inactivated Lena Dominic DO Work Phone: [facility] 08-10-2001 diphtheria, tetanus toxoids and acellular pertussis vaccine, unspecified formulation Lena Dominic DO Work Phone: [facility] 08-10-2001 haemophilus influenz ae type b vaccine, PRP-OMP conjugate Lena Dominic DO Work Phone: [facility] 08-10-2001 measles, mumps and r ubella virus vaccine Lena Dominic DO Work Phone: [facility] 08-10-2001 poliovirus vaccine, inactivated Lena Dominic DO Work Phone: [facility] 08-10-2001 varicella virus vaccine Core y Dominic DO Work Phone: [facility] 06-28-2001 influenza virus vacc ine, whole virus Lena Dominic DO Work Phone: [facility] 06-28-2001 influenza virus vacc ine, unspecified formulation Lena Dominic DO Work Phone: [facility] 02-03-2001 diphtheria, tetanus toxoids and acellular pertussis vaccine, unspecified formulation Lena Dominic DO Work Phone: [facility] 02-03-2001 haemophilus influenz ae type b conjugate and Hepatitis B vaccine Lena Dominic DO Work Phone: [facility] 2000 diphtheria, tetanus toxoids and acellular pertussis vaccine, unspecified formulation Lena Dominic DO Work Phone: [facility] 2000 poliovirus vaccine, inactivated Lena Dominic DO Work Phone: [facility] 2000 diphtheria, tetanus toxoids and acellular pertussis vaccine, unspecified formulation Lena Dominic DO Work Phone: [facility] 2000 haemophilus influenz ae type b vaccine, PRP-OMP conjugate Lena Domiinc DO Work Phone: [facility] 2000 poliovirus vaccine, inactivated Lena Dominic DO Work Phone: [facility] 2000 diphtheria, tetanus toxoids and acellular pertussis vaccine, unspecified formulation Lena Dominic DO Work Phone: [facility] 2000 haemophilus influenz ae type b vaccine, PRP-OMP conjugate Lena Dominic DO Work Phone: [facility] 2000 hepatitis B vaccine, pediatric or pediatric/adolescent dosage Lena Dominic DO Work Phone: [facility] 2000 poliovirus vaccine, inactivated Lena Dominic DO Work Phone: [facility] 2000 hepatitis B vaccine, pediatric or pediatric/adolescent dosage Lena Dominic DO Work Phone: [facility] Payers Date Payer Category Payer Medicaid [id number] 2022 Medicaid [id number] 2000 Unknown [id number] 2.16.84 [id number] 2000 Unknown [id number] 2.16.84 [id number] 2000 Unknown [id number] 2.16.84 [id number] 2000 Unknown [id number] 2.16.84 [id number] 2000 Unknown [id number] 2.16.84 [id number] 2000 Unknown [id number] 2.16.84 [id number] 2000 Unknown [id number] 2.16.84 [id number] 2000 Unknown [id number] 2.16.84 [id number] 2000 Unknown [id number] 1959 Unknown [id number] Social History Date Type Detail Facility Unknown if ever smoked [facility] Other Start: 09-14-2023 End: 09-15-2023 Sex Assigned At [facility] Start: 03-16-2023 Tobacco smoking stat [facility] Never smoked tobacco [facility] Start: 03-16-2023 Tobacco use and exposure Smokeless tobacco non-user [facility] Start: 10-18-2023 Alcohol intake Lifetime non-d karen (finding) [facility] Start: 09-14-2023 End: 09-15-2023 History of Social function [facility] Within the last year , have you been afraid of your partner or ex-partner? No [facility] How often do you attend anabaptist or latter day services? Patient refused [facility] Are you now , , , , never or living with a partner? Living with partner [facility] How often to you hav e a drink containing alcohol? 2-4 times a month [facility] How many standard drinks containing alcohol do you have on a typical day? 1 or 2 [facility] How often do you hav e 6 or more drinks on 1 occasion? Never [facility] Do you feel stress - tense, restless, nervous, or anxious, or unable to sleep at night because your mind is troubled all the time - these days [OSQ] Not at all [facility] (I/We) worried wheth er (my/our) food would run out before (I/we) got money to buy more. DK or Refused [facility] Start: 03-16-2023 Alcohol Comment caffeine: 1-2 cups/d ay [facility] Start: 2000 Sex Assigned At Female [facility] Start: 03-02-2023 Gender identity Identifies as female gender (finding) [facility] History of Present illness Narrative 10-18-2023 Kristina Loving LPN - 10/18/2023 2:10 PM EST Note Date & Type Note Facility 10-18-2023 History of Presen t illness Narrative Reason for Appointment: Patient ID: Ramirez Menard is a 23 y.o. female who presents for Contraception Patient presents today for Acute Visit appointment. Current Medications: has a current medication list which includes the following prescription(s): jolessa. Medical History: Active Ambulatory Problems Diagnosis Date Noted Cervical motion tenderness 09/14/2023 Dysmenorrhea 09/14/2023 Fibromyalgia 09/14/2023 Insomnia 09/14/2023 Menorrhagia with irregular cycle 09/14/2023 Migraine headache (CMS/HCC) 09/14/2023 Migraine without aura and without status migrainosus, not intractable (CMS/FORMERLY [facility]) 09/14/2023 Nausea and vomiting 09/14/2023 Pain in pelvis 09/14/2023 Spinal instability of lumbosacral region 09/14/2023 Twitching 09/14/2023 Vaginitis and vulvovaginitis 09/14/2023 Resolved Ambulatory Problems Diagnosis Date Noted No Resolved Ambulatory Problems Past Medical History: Diagnosis Date BMI 29.0-29.9,adult COVID-19 virus RNA test result positive at limit of detection 08/25/2022 Encounter for insertion of mirena IUD ETD (Eustachian tube dysfunction), left Family planning History of CT scan Intrauterine device surveillance Migraines (CMS/HCC) Well woman exam Family History Problem Relation Name Age of Onset Hypertension Mother Stroke Mother Allergies Father Stroke Maternal Grandfather Heart disease Maternal Grandfather Hypertension Paternal Grandfather Colon cancer Paternal Grandfather No Known Problems Daughter No Known Problems Son Social History Tobacco Use Smoking status: Never Smokeless tobacco: Never Substance Use Topics Alcohol use: Never Comment: caffeine: 1-2 cups/day Drug use: Yes Types: Marijuana Past Surgical History: Procedure Laterality Date ADENOIDECTOMY IUD INSERTION Mirena LAPAROSCOPY DIAGNOSTIC / BIOPSY / ASPIRATION / LYSIS 04/01/2023 diagnostic PAP SMEAR 12/01/2021 negative RI TONSILLECTOMY & ADENOIDECTOMY AGE 12/2011 No Known Allergies Review of Systems: Review of Systems Constitutional: Negative. HENT: Negative. Eyes: Negative. Respiratory: Negative. Cardiovascular: Negative. Gastrointestinal: Negative. Genitourinary: Negative. Musculoskeletal: Negative. Skin: Negative. Neurological: Negative. All other systems reviewed and are negative. Hematological: Negative. Endocrine: Negative. Allergic/Immunologic: Negative. Objective Physical Exam Constitutional: Appearance: Normal appearance. She is well-developed. Cardiovascular: Rate and Rhythm: Normal rate and regular rhythm. Pulmonary: Effort: Pulmonary effort is normal. Breath sounds: Normal breath sounds. Abdominal: General: Bowel sounds are normal. There is no distension. Palpations: Abdomen is soft. Tenderness: There is no abdominal tenderness. There is no guarding or rebound. Musculoskeletal: General: No swelling. Normal range of motion. Right lower leg: No edema. Left lower leg: No edema. Neurological: Mental Status: She is alert and oriented to person, place, and time. Skin: General: Skin is warm and dry. Psychiatric: Mood and Affect: Mood normal. Behavior: Behavior normal. Vitals and nursing note reviewed. Exam conducted with a rail maintenance worker present. Vitals: Estimated body mass index is 34.36 kg/m as calculated from the following: Height as of 03/03/23: 5' 8 . Weight as of this encounter: 226 lb. BP: 126/78 No LMP recorded (lmp unknown). Assessment/Plan Encounter Diagnoses Name Primary? control counseling Request for sterilization Pt desires permanent sterilization. Patient does not want anymore children. The patient understands the procedure is considered permanent and not reversible. Failure rates reviewed with patient. Alternatives discussed. ODJFS Consent obtained and reviewed. Will perform robotic laparoscopic bilateral salpingectomy. Documented by Kristina Loving LPN on behalf of: Lena Alfaro DO documented in this encounter [facility] Evaluation note 08-11-2023 Note Date & Type Note Facility 08-11-2023 Evaluation note Encounter Date Diagnosis Assessment Notes Jul, Viral upper respiratory illness (ICD-10 - J06.9) Illness appears to be viral in nature. Instructed patient to use Flonase nasal spray to relieve nasal congestion. OTC sinus medication per lable instructions. Instructed patient to increase fluid intake and rest. If symptoms continue greater than 7 to 10 days follow up with PCP. All questions and concerns addressed. Patient verbalizes understanding . [facility] Other Evaluation note 05-15-2023 Note Date & Type Note Facility 05-15-2023 Evaluation note Encounter Date Diagnosis Assessment Notes May, Sore throat (ICD-10 - J02.9) May, Pharyngitis, unspecified etiology (ICD-10 - J02.9) Drink plenty fluids, get plenty of rest. Take Tylenol or Motrin as needed for aches pains or fevers. Take the prednisone as prescribed until gone. Follow-up with your family physician if no improvement in 2 to 3 days [facility] Other Evaluation note Note Date & Type Note Facility Evaluation note Diagnosis control counseling Request for sterilization documented in this encounter [facility] History general Narrative - Reported Note Date & Type Note Facility History general Narrative - Reported Type Medical History Migraine Medical History Fibromyalgia Surgical History adenoidectomy Surgical History laparoscopy [facility] Other Summary Purpose Family History No Family History Records FoundNo Family History Records Found Advance Directives No Advanced Directives Records FoundNo Advanced Directives Records Found Additional Source Comments INFORMATION SOURCE (unrecogn ized section and content) DATE CREATED AUTHOR 01/23/2023 [facility] DATE CREATED AUTHOR AUTHOR'S ORGANIZ ATION 11/15/2023 [facility] EPIC REASON FOR VISIT (unrecogniz ed section and content) Reason Comments Contraception Care Teams (unrecognized sec tion and content) Cable [employer] Relationship Specialty Start Date End Date Ezra Marquez MD [address] [facility] [address] [place] [address] PCP - General Family Medicine 03/03/23 FOR RECORDS PERTAINING TO PATIENTS WHO ARE OR HAVE BEEN ENROLLED IN A CHEMICAL DEPENDENCY/SUBSTANCEABUSE PROGRAM, SOME INFORMATION MAY BE OMITTED. This clinical summary was aggregated from multiple sources. Caution should be exercised in using it in the provision of clinical care. This summary normalizes information from multiple sources, and as a consequence, information in this document may materially change the coding, format and clinical context of patient data. In addition, data may be omitted in some cases. CLINICAL DECISIONS SHOULD BE BASED ON THE PRIMARY CLINICAL RECORDS. [employer] [facility]. provides no warranty or guarantee of the accuracy or completeness of information in this document.
[2023-12-09 08:17] LABS: Basophils Percent Auto 0.5 % (0.2-2.0); Eosinophils Absolute Auto 0.4 10^3/uL (0.0-0.7); Eosinophils Percent Auto 7.5 % (0.9-7.0); Hematocrit 42.2 % (36.0-48.0); Immature Granulocytes Abs Auto 0.02 10^3/uL (0.00-0.03); Immature Granulocytes Pct Auto 0.4 % (0.0-0.5); Lymphocytes Absolute Auto 1.7 10^3/uL (1.2-3.8); Lymphocytes Percent Auto 31.8 % (20.5-60.0); Mean Corpuscular HGB Conc 33.2 g/dL (29.9-35.2); Mean Corpuscular Volume 90.4 fL (81.0-99.0); Mean Platelet Volume 8.8 fL (9.5-13.5); Monocytes Absolute Auto 0.4 10^3/uL (0.3-0.8); Monocytes Percent Auto 7.1 % (1.7-12.0); Neutrophils Absolute Auto 2.9 10^3/uL (1.4-6.5); Neutrophils Percent Auto 52.7 % (43.0-75.0); Platelet Count 228 10^3/uL (150-450); Red Blood Count 4.67 10^6/uL (4.20-5.40); Red Cell Distribution Width 12.1 % (11.0-15.0); White Blood Count 5.5 10^3/uL (4.0-11.0)
[2023-12-09 08:38] LABS: HCG Quantitative <1 mIU/mL
[2023-12-09] MEDS: LACTATED RINGER'S SOLUTION 1,000 ML 50 ML IV (09:08)
[2023-12-09] MEDS: SCOPOLAMINE 1 MG/3 DAYS TRANSDERM PATCH 1 PATCH TD (10:28)
--- NOTE | 2023-12-09 11:17 | P.ON_ITS ---
Brief Operative Note Date of procedure: 12/09/23 Pre-op diagnosis general: multiparity, desires permanent sterilization Post-op diagnosis: same as pre-op Procedure: NAME OF PROCEDURE: robotic assisted bilateral laparoscopic salpingectomy PROCEDURE: The patient was taken back to the Operating Room where she was given general anesthesia without difficulty. She was then prepped and draped in the normal sterile fashion after being placed in a dorsal lithotomy position. A wet sponge stick was placed into the patient's vagina. Attention was then turned to the patient's abdomen, where a scalpel was used to make a small infraumbilical incision. The S retractors were then used to dissect the underlying layers until the fascia could be seen. The fascia was then grasped with [place] clamps and tented up. A knife was then used to make a small incision to the fascia. The muscle was identified, at that time two sutures of #0 Vicryl on a GI needle was then used and placed through the fascia. the peritoneum was then identified and entered bluntly. The 10-4 Bentley was then placed into the patient's abdomen. This was confirmed with direct visualization of the bowel, using the laparoscope. The patient's abdomen was then insufflated using approximately 4 liters of CO2 gas. Survey of the patient's abdomen demonstrated ovaries were normal in appearance as well as both tubes and uterus. A second and third rt and lt lateral robotic ports which were 8 mm in size, was then placed after the skin incision was made under direct visualization . the robotic arms were engaged. The patient's tube on the patient's right side was identified and tented up using a grasper, the ligasure apparatus was then used to come across the mesosalpingx from the fimbriated end to the insertion site at the uterus, the tube was then amputated and removed in its entirety. This was done on the contralateral side. The tubes were the removed from the patients abdomen. Excellent hemostasis was noted. The lateral ports were then moved under direct visualization with excellent hemostasis. All instruments were removed from the patient's abdomen. The fascia was closed using the #0 Vicryl on GI needle. The skin was closed using 4-0 Vicryl subcuticularly. All instruments were removed from the patient's vagina as well. The patient was taken out of the dorsal lithotomy position and placed in the supine position and taken to recovery in s table condition. Sponge, lap and needle counts were correct x2. Anesthesia: BETHA Surgeon: Nasir Alfaro Manager Clinical Applications: Bronwyn Munguia Estimated blood loss (mL): 5 Pathology: other (tubes) Condition: stable Disposition: PACU Urinary Catheter Management Urinary Catheter Management Urethral: Cath placed during this visit: no
[2023-12-09] MEDS: MIDAZOLAM HCL 2 MG/2 ML VIAL IV (11:41)
[2023-12-09] MEDS: HYDROMORPHONE HCL 0.5 MG/0.5 ML SYRINGE IV ×2 (11:41→12:04)
[2023-12-09] MEDS: HYDROCODONE/ACET 5-325 MG TABLET 1 TAB PO (12:04)
[2023-12-09] MEDS: PROMETHAZINE HCL 25 MG TABLET PO (12:26)
--- NOTE | 2023-12-09 13:38 | PC.NURSE ---
1325: pt ambulates to bathroom with stand by assistance and voids without difficulty.
== END 2023-12-09 13:30 | disposition home or self-care (01) ==
PROVIDERS: Visit Provider Obstetrics & Gynecology
PROC: (CPT 840; principal; 2023-12-09 09:30)
DX: Z30.2 Encounter for sterilization (principal); M79.7 Fibromyalgia; G47.00 Insomnia, unspecified
CPT/HCPCS: 58661; 36415; 84702; 85025; 88302; 99999; J1094; J1170; J2704

== ENCOUNTER 2024-01-17 21:47 | Outpatient (REF) | payer OTHER, SELFPAY ==
--- OUTSIDE RECORDS SUMMARY | 2024-01-17 21:54 | XMS_ITS | CCD ---
Author Organization [facility] Care Team Providers Care Aircraft Delivery Checker Name Role Phone DOMINIC ., DR PAREDES [...] PETER HOPPER Consulting Unavailable Lorin Christina Unavailable Urmila Osborn Unavailable Ezra Marquez MD Primary Care Provider [phone] IRVING JOHNSON Attending Unavailable LENA ALFARO Attending Unavailable LENA ALFARO Attending Unavailable AlmaEzra hull Primary Care Unavailable Lena Alfaro Attending Unavailable Lena Alfaro Admitting Unavailable Allergies Allergy Classification Reported Allergen(s) Allergy Type Date of Onset Reaction(s) Facility (1 source) butylvinal Drug Allergy [facility] Repository (1 source) Desonide Drug Allergy [facility] Repository (2 sources) vinyl gloves Propensity to adverse reactions anaphylaxis [facility] Other (1 source) vinyl ether Drug allergy (disorder) 3 [facility] Repository Medications Current Medications Medication Drug Class(es) Dates [...] 10-25-2022 Episodic Other aftercare (1 source) Other exterminator helper termite (current) drug therapy; Translations: [OTH DRUG SAFETY SPECIALIST CURRENT DRUG THERAPY] Onset: 10-25-2022 Episodic Other [...] Test Name Value Interpretation Reference Range Facility [facility] 12-09-2023 L Specimen: [id number] Received: 12/09/23 Status: [facility] Re Num: [id number] Spec Type: Surgical Subm Dr: Lena Alfaro Tissues: A Fallopian Tube - Sterilization (BILATERAL FT) Procedures: HE/2, Gross/Micro L2 Age/ Patient Sex Location Account Attending Physician Ramirez Dunaway 23/F LABELL [id number] Lena Alfaro SPEC NUM: [id number] RECD: 12/09/23 STATUS: SOUT RE NUM: [id number] ROSARIO: 12/09/23-[address]: Lena Alfaro ENTERED: 12/09/23-1350 [facility] DR: Isaac,Lab SPEC TYPE: Surgical DEPT: EUGENIO SLAUGHTER ORDERED: HE/2, Gross/Micro L2 ORDERED: HE/2, Gross/Micro L2 Pathological Diagnosis Bilateral Fallopian Tubes, Resection: Paratubal cyst. Clinical Information Request for sterilization Gross Description Received in formalin labeled with the patient's name, date of and bilateral fallopian tubes are two castellon-pink fimbriated fallopian tubes measuring 5.7 x 0.7 x 0.3 cm (inked blue) and 5.5 x 0.8 x 0.4 cm. Each has a pinpoint lumen on cut section. Additionally received within the same container is a 1.2 x 0.5 x 0.2 cm hood-white membranous tissue. Livestock Producer sections are submitted in two cassettes labeled A1-A2. CPT Codes 27244 Specimen: [id number] Received: 12/09/23 Status: [facility] Num: [id number] Spec Type: Surgical Subm Dr: Lena Alfaro Tissues: A Fallopian Tube - Sterilization (BILATERAL FT) Procedures: HE/2, Gross/Micro L2 Patient: Ramirez Dunaway [id number] (Continued) Signed (signature on file) Ying Morton MD 12/12/23 1436 Normal [facility] HCG ( test) Ql (U)o n 10-18-2023 Interpretation and review of laboratory results Normal [facility] Healthal re Preg Test, [facility] St[facility] 05-15-2023 S. pyogenes Org specific cx Ql (Throat) Negative [facility] Other Quick Strep [facility] Other US PELVIS AND TRANSVAGon US PELVIS [...] authenticated by: NAHED [place] Date: 2023-01-21 10:33 Normal [facility] PAP ACOG PANEL 2: 21 to 29on 01-13-2023 . . Normal [facility] Comment on above: Performed By: #### [id number] #### [facility] [address] [place] [address] Dr. Apollo Rey Age Gdln ACOG Testing 21-29 [facility] Comment on above: Performed By: #### 4 [id number] #### [facility] [address] [place] [address] Dr. Apollo Rey DIAGNOSIS: Comment [facility] Comment on above: Result Comment: NEGA TIVE FOR INTRAEPITHELIAL LESION OR MALIGNANCY. Performed By: #### 4 [id number] #### [facility] [address] [place] [address] Dr. Apollo Rey Methodology: Comment [facility] Comment on above: Result Comment: This liquid based ThinPrep(R) pap test was screened with the use of an image guided system. Performed By: #### 4 [id number] #### [facility] [address] [place] [address] Dr. Apollo Rey Note: Comment [facility] Comment on above: Result Comment: The Pap smear is a screening test designed to aid in the detection of premalignant and malignant conditions of the uterine cervix. It is not a diagnostic procedure and should not be used as the sole means of detecting cervical cancer. Both false-positive and false-negative reports do occur. . Performed By: #### 4 [id number] #### [facility] [address] [place] [address] Dr. Apollo Rey Performed by: Comment Normal [facility] Comment on above: Result Comment: David Johnson, Senior Sustainability Consultant (ASCP) Performed By: #### 4 [id number] #### [facility] [address] [place] [address] Dr. Apollo Rey Reflex Criteria: Comment [facility] Comment on above: Result Comment: The HPV DNA reflex criteria were not met with this specimen result therefore, no HPV testing was performed. . Performed By: #### 4 [id number] #### [facility] [address] [place] [address] Dr. Apollo Rey Specimen adequacy: Comment Normal [facility] Comment on above: Result Comment: Sati sfactory for evaluation. Endocervical and/or squamous metaplastic cells (endocervical component) are present. Performed By: #### 4 [id number] #### [facility] [address] [place] [address] Dr. Apollo Rey CBC AUTO DIFFon 01-05-2023 BASO # 0.0 103/ul Normal 0.0-0.1 [facility] Comment on above: Performed By: #### C BC #### [facility] [address] [place] [address] Dr. Apollo Rey Basophils/100 WBC (Bld) 0.5 % Normal 0.2-2.0 [facility] Comment on above: Performed By: #### C BC #### [facility] [address] [place] [address] Dr. Apollo Rey EO # 0.3 103/ul Normal 0.0-0.7 [facility] Comment on above: Performed By: #### C BC #### [facility] [address] [place] [address] Dr. Apollo Rey Eosinophils/100 WBC (Bld) 3.5 % Normal 0.9-7.0 [facility] Comment on above: Performed By: #### C BC #### [facility] [address] [place] [address] Dr. Apollo Rey Erythrocyte distribution width (RBC) [Ratio] 12.1 % Normal 11.0-15.0 [facility] Comment on above: Performed By: #### C BC #### [facility] [address] [place] [address] Dr. Apollo Rey Hematocrit (Bld) [Volume fraction] 41.0 % Normal 36.0-48.0 [facility] Comment on above: Performed By: #### C BC #### [facility] [address] [place] [address] Dr. Apollo Rey Hemoglobin (Bld) [Mass/Vol] 13.8 g/dL Normal 12.0-16.0 [facility] Comment on above: Performed By: #### C BC #### [facility] [address] [place] [address] Dr. Apollo Rey IG # 0.03 10e3/ul Normal 0.00-0.03 [facility] Comment on above: Performed By: #### C BC #### [facility] [address] [place] [address] Dr. Apollo Rey IG % 0.4 % Normal 0.0-0.5 [facility] Comment on above: Performed By: #### C BC #### [facility] [address] [place] [address] Dr. Apollo Rey LYMPH # 1.9 103/ul Normal 1.2-3.8 [facility] Comment on above: Performed By: #### C BC #### [facility] [address] [place] [address] Dr. Apollo Rey Lymphocytes/100 WBC (Bld) 23.0 % Normal 20.5-60.0 [facility] Comment on above: Performed By: #### C BC #### [facility] [address] [place] [address] Dr. Apollo Rey MANUAL DIFF REQ NO Normal [facility] Comment on above: Performed By: #### C BC #### [facility] [address] [place] [address] Dr. Apollo Rey MCH (RBC) [Entitic mass] 30.4 pg Normal 26.7-34.0 [facility] Comment on above: Performed By: #### C BC #### [facility] [address] [place] [address] Dr. Apollo Rey MCHC (RBC) [Mass/Vol] 33.7 g/dL Normal 29.9-35.2 [facility] Comment on above: Performed By: #### C BC #### [facility] [address] [place] [address] Dr. Apollo eRy MCV (RBC) [Entitic vol] 90.3 fL Normal 81.0-99.0 [facility] Comment on above: Performed By: #### C BC #### [facility] [address] [place] [address] Dr. Apollo Rey MONO # 0.5 103/ul Normal 0.3-0.8 [facility] Comment on above: Performed By: #### C BC #### [facility] [address] [place] [address] Dr. Apollo Rey Monocytes/100 WBC (Bld) 6.3 % Normal 1.7-12.0 [facility] Comment on above: Performed By: #### C BC #### [facility] [address] [address] [address] Apollo Rey NEUT # 5.3 103/ul Normal 1.4-6.5 [facility] Comment on above: Performed By: #### C BC #### [facility] [address] [place] [address] Dr. Apollo Rey Neutrophils/100 WBC (Bld) 66.3 % Normal 43.0-75.0 [facility] Comment on above: Performed By: #### C BC #### [facility] [address] [place] [address] Dr. Apollo Rey Platelet mean volume (Bld) [Entitic vol] 9.0 fL Critically low 9.5-13.5 [facility] Comment on above: Performed By: #### C BC #### [facility] [address] [place] [address] Dr. Apollo Rey PLT 239 103/ul Normal 150-450 [facility] Comment on above: Performed By: #### C BC #### [facility] [address] [place] [address] Dr. Apollo Rey RBC 4.54 106/ul Normal 4.20-5.40 [facility] Comment on above: Performed By: #### C BC #### [facility] [address] [place] [address] Dr. Apollo Rey WBC 8.0 103/ul Normal 4.0-11.0 [facility] Comment on above: Performed By: #### C BC #### [facility] [address] [place] [address] Dr. Apollo Rey Cytology Cervical or vaginal smear or scraping studyon 01-05-2023 [facility] FREE T4on 01-05-2023 Free T4 [Mass/Vol] 0.95 ng/dL Normal 0.76-1.46 [facility] Comment on above: Performed By: #### F T4 #### [facility] [address] [place] [address] Dr. Apollo Rey GLYCOHEMOGLOBIN A1Con 2022 ADA RECOMMENDATION SEE BELOW Normal [facility] Comment on above: Result Comment: ADA RECOMMENDED LIMIT 4.0 - 6.0 ADA THERAPEUTIC TARGET < 7.0 ACTION SUGGESTED > 7.0 Performed By: #### 4 [id number] #### [facility] [address] [address] [address] Apollo Rey Glucose [Mass/Vol] 105 mg/dL Normal [facility] Comment on above: Performed By: #### 4 [id number] #### [facility] [address] [place] [address] Dr. Apollo Rey HbA1c (Bld) [Mass fraction] 5.3 % Normal 4.5-6.2 [facility] Comment on above: Performed By: #### 4 [id number] #### [facility] [address] [place] [address] Dr. Apollo Rey PROTIMEon 01-05-2023 INR Coag (PPP) [Relative time] 0.95 {INR} Normal [facility] Comment on above: Performed By: #### 4 [id number] #### [facility] [address] [place] [address] Dr. Apollo Rey INR GUIDELINES SEE BELOW Normal [facility] Comment on above: Result Comment: RAY RED INR: 2.0 - 3.0 CONDITIONS NOT LISTED BELOW 2.5 - 3.5 FOR PROSTHETIC HEART VALVE REPLACEMENT 2.5 - 3.5 RECURRENT THROMBOSIS Performed By: #### 4 [id number] #### [facility] [address] [place] [address] Dr. Apollo Rey PT Coag (PPP) [Time] 10.1 s Normal 9.0-11.6 [facility] Comment on above: Performed By: #### 4 [id number] #### [facility] [address] [place] [address] Dr. Apollo Rey PTTon 01-05-2023 aPTT Coag (Bld) [Time] 29.0 s Normal 22.3-36.2 [facility] Comment on above: Performed By: #### 4 [id number] #### [facility] [address] [place] [address] Dr. Apollo Rey TSHon 01-05-2023 TSH 1.102 uIU/mL Normal 0.358-3.740 [facility] Comment on above: Performed By: #### T SH #### [facility] [address] [place] [address] Dr. Apollo Rey CBC AUTO DIFFon 10-21-2022 BASO # 0.0 103/ul Normal 0.0-0.1 [facility] Comment on above: Performed By: #### C BC #### [facility] [address] [place] [address] Dr. Apollo Rey Basophils/100 WBC (Bld) 0.4 % Normal 0.2-2.0 [facility] Comment on above: Performed By: #### C BC #### [facility] [address] [place] [address] Dr. Apollo Rey EO # 0.1 103/ul Normal 0.0-0.7 [facility] Comment on above: Performed By: #### C BC #### [facility] [address] [place] [address] Dr. Apollo Rey Eosinophils/100 WBC (Bld) 1.5 % Normal 0.9-7.0 [facility] Comment on above: Performed By: #### C BC #### [facility] [address] [place] [address] Dr. Apollo Rey Erythrocyte distribution width (RBC) [Ratio] 12.9 % Normal 11.0-15.0 [facility] Comment on above: Performed By: #### C BC #### [facility] [address] [place] [address] Dr. Apollo Rey Hematocrit (Bld) [Volume fraction] 38.2 % Normal 36.0-48.0 [facility] Comment on above: Performed By: #### C BC #### [facility] [address] [place] [address] Dr. Apollo Rey Hemoglobin (Bld) [Mass/Vol] 13.5 g/dL Normal 12.0-16.0 [facility] Comment on above: Performed By: #### C BC #### [facility] [address] [place] [address] Dr. Apollo Rey IG # 0.02 10e3/ul Normal 0.00-0.03 [facility] Comment on above: Performed By: #### C BC #### [facility] [address] [place] [address] Dr. Apollo Rey IG % 0.3 % Normal 0.0-0.5 [facility] Comment on above: Performed By: #### C BC #### [facility] [address] [place] [address] Dr. Apollo Rey LYMPH # 2.0 103/ul Normal 1.2-3.8 [facility] Comment on above: Performed By: #### C BC #### [facility] [address] [place] [address] Dr. Apollo Rey Lymphocytes/100 WBC (Bld) 26.3 % Normal 20.5-60.0 [facility] Comment on above: Performed By: #### C BC #### [facility] [address] [place] [address] Dr. Apollo Rey MANUAL DIFF REQ NO Normal [facility] Comment on above: Performed By: #### C BC #### [facility] [address] [place] [address] Dr. Apollo Rey MCH (RBC) [Entitic mass] 30.8 pg Normal 26.7-34.0 [facility] Comment on above: Performed By: #### C BC #### [facility] [address] [place] [address] Dr. Apollo Rey MCHC (RBC) [Mass/Vol] 35.3 g/dL Critically high 29.9-35.2 [facility] Comment on above: Performed By: #### C BC #### [facility] [address] [address] [address] Apollo Rey MCV (RBC) [Entitic vol] 87.0 fL Normal 81.0-99.0 [facility] Comment on above: Performed By: #### C BC #### [facility] [address] [address] [address] Apollo Rey MONO # 0.5 103/ul Normal 0.3-0.8 [facility] Comment on above: Performed By: #### C BC #### [facility] [address] [place] [address] Dr. Apollo Rey Monocytes/100 WBC (Bld) 6.4 % Normal 1.7-12.0 [facility] Comment on above: Performed By: #### C BC #### [facility] [address] [place] [address] Dr. Apollo Rey NEUT # 4.9 103/ul Normal 1.4-6.5 [facility] Comment on above: Performed By: #### C BC #### [facility] [address] [place] [address] Dr. Apollo Rey Neutrophils/100 WBC (Bld) 65.1 % Normal 43.0-75.0 [facility] Comment on above: Performed By: #### C BC #### [facility] [address] [place] [address] Dr. Apollo Rey Platelet mean volume (Bld) [Entitic vol] 8.8 fL Critically low 9.5-13.5 [facility] Comment on above: Performed By: #### C BC #### [facility] [address] [place] [address] Dr. Apollo Rey PLT 206 103/ul Normal 150-450 [facility] Comment on above: Performed By: #### C BC #### [facility] [address] [place] [address] Dr. Apollo Rey RBC 4.39 106/ul Normal 4.20-5.40 [facility] Comment on above: Performed By: #### C BC #### [facility] [address] [place], [place] [address] Dr. Apollo Rey WBC 7.5 103/ul Normal 4.0-11.0 [facility] Comment on above: Performed By: #### C BC #### [facility] [address] [place], [place] [address] ABD/PELV W CONon [...] PETER HOPPER Date: 2022-10-21 17:45 Normal [facility] ER URINE PROFILEon 3 Bilirubin Ql (U) Negative Normal NEGATIVE [facility] Comment on above: Performed By: #### 4 [id number] #### [facility] [address] [place] [address] Dr. Apollo Rey Clarity (U) CLEAR Normal CLEAR [facility] Comment on above: Performed By: #### 4 [id number] #### [facility] [address] [place] [address] Dr. Apollo Rey Color (U) LT. YELLOW Normal YELLOW [facility] Comment on above: Performed By: #### 4 [id number] #### [facility] [address] [place] [address] Dr. Apollo TAVAREZ A micrscopic examination will be performed if indicated. Normal [facility] Comment on above: Performed By: #### 4 [id number] #### [facility] [address] [place] [address] Dr. Apollo Rey Glucose Ql (U) Negative Normal NEGATIVE [facility] Comment on above: Performed By: #### 4 [id number] #### [facility] [address] [place] [address] Dr. Apollo Rey Hemoglobin Ql (U) Negative Normal NEGATIVE [facility] Comment on above: Performed By: #### 4 [id number] #### [facility] [address] [place] [address] Dr. Apollo Rey Ketones Ql (U) Negative Normal NEGATIVE [facility] Comment on above: Performed By: #### 4 [id number] #### [facility] [address] [place] [address] Dr. Apollo Rey LEUKOCYTES TRACE Abnormal NEGATIVE [facility] Comment on above: Performed By: #### 4 [id number] #### [facility] [address] [place] [address] Dr. Apollo Rey Nitrite Ql (U) Negative Normal NEGATIVE [facility] Comment on above: Performed By: #### 4 [id number] #### [facility] [address] [place] [address] Dr. Apollo Rey pH (U) 6.0 [pH] Normal 5-9 [facility] Comment on above: Performed By: #### 4 [id number] #### [facility] [address] [place] [address] Dr. Apollo Rey SPEC GRAVITY 1.020 Normal 1.005-<=1.025 [facility] Comment on above: Performed By: #### 4 [id number] #### [facility] [address] [place] [address] Dr. Apollo Rey UA PROTEIN Negative Normal NEGATIVE/ TRACE [facility] Comment on above: Performed By: #### 4 [id number] #### [facility] [address] [address] [address] Apollo Rey UR MICRO IND NOT INDICATED Normal [facility] Comment on above: Performed By: #### 4 [id number] #### [facility] [address] [place] [address] Dr. Apollo Rey Urobilinogen Qn (U) 0.2 {Ирина'U}/dL Normal 0.2 - 1. 0 [facility] Comment on above: Performed By: #### 4 [id number] #### [facility] [address] [place] [address] Dr. Apollo Rey URon 10-21-2022 , QUAL Negative Normal NEGATIVE [facility] Comment on above: Performed By: #### P REGU #### [facility] [address] [place] [address] Dr. Apollo Rey PROF 14(COMP METB)on 023 Albumin [Mass/Vol] 4.1 g/dL Normal 3.4-5.0 [facility] Comment on above: Performed By: #### C MP #### [facility] [address] [place] [address] Dr. Apollo Rey Albumin/Globulin [Mass ratio] 1.2 {ratio} Normal [facility] Comment on above: Performed By: #### C MP #### [facility] [address] [place] [address] Dr. Apollo Rey ALP [Catalytic activity/Vol] 85 U/L Normal 46-116 [facility] Comment on above: Performed By: #### C MP #### [facility] [address] [address] [address] Apollo Rey ALT [Catalytic activity/Vol] 18 U/L Normal 14-59 [facility] Comment on above: Performed By: #### C MP #### [facility] [address] [address] [address] Apollo Rey Anion gap [Moles/Vol] 12.7 mmol/L Normal [facility] Comment on above: Performed By: #### C MP #### [facility] [address] [address] [address] Apollo Rey AST [Catalytic activity/Vol] 14 U/L Critically low 15-37 [facility] Comment on above: Performed By: #### C MP #### [facility] [address] [address] [address] Apollo Rey Bilirubin [Mass/Vol] 0.3 mg/dL Normal 0.2-1.0 [facility] Comment on above: Performed By: #### C MP #### [facility] [address] [address] [address] Apollo Rey Calcium [Mass/Vol] 8.8 mg/dL Normal 8.5-10.1 [facility] Comment on above: Performed By: #### C MP #### [facility] [address] [place] [address] Dr. Apollo Rey Chloride [Moles/Vol] 103 mmol/L Normal 98-107 [facility] Comment on above: Performed By: #### C MP #### [facility] [address] [address] [address] Apollo Rey CO2 [Moles/Vol] 24.9 mmol/L Normal 21.0-32.0 [facility] Comment on above: Performed By: #### C MP #### [facility] [address] [address] [address] Apollo Rey Creatinine [Mass/Vol] 0.72 mg/dL Normal 0.55-1.02 [facility] Comment on above: Performed By: #### C MP #### [facility] [address] [address] [address] Apollo Rey EGFR-AF OMANI >60 Normal >=60 [facility] Comment on above: Performed By: #### C MP #### [facility] [address] [address] [address] Apollo Rey EGFR-NON AF OMANI >60 Normal >=60 [facility] Comment on above: Performed By: #### C MP #### [facility] [address] [address] [address] Apollo Rey Globulin (S) [Mass/Vol] 3.4 g/dL Normal [facility] Comment on above: Performed By: #### C MP #### [facility] [address] [address] [address] Apollo Rey Glucose [Mass/Vol] 96 mg/dL Normal 74-106 [facility] Comment on above: Performed By: #### C MP #### [facility] [address] [address] [address] Apollo Rey Potassium [Moles/Vol] 3.6 mmol/L Normal 3.5-5.1 [facility] Comment on above: Performed By: #### C MP #### [facility] [address] [place] [address] Dr. Apollo Rey Protein [Mass/Vol] 7.5 g/dL Normal 6.4-8.2 [facility] Comment on above: Performed By: #### C MP #### [facility] [address] [address] [address] Apollo Rey Sodium [Moles/Vol] 137 mmol/L Normal 136-145 [facility] Comment on above: Performed By: #### C MP #### [facility] [address] [place] [address] Dr. Apollo Rey Urea nitrogen [Mass/Vol] 9.0 mg/dL Normal 7.0-18.0 [facility] Comment on above: Performed By: #### C MP #### [facility] [address] [place] [address] Dr. Apollo Rey Urea nitrogen/Creatinine [Mass ratio] 12.5 mg/mg Normal [facility] Comment on above: Performed By: #### C MP #### [facility] [address] [place] [address] Dr. Apollo Rey Covid-19 PCR ([facility])on 08-12 SARS-CoV-2 (COVID-19) RNA TAYLOR+probe Ql (Unsp spec) Detected Critically abnormal NOT DETECTED [facility] Comment on above: Result Comment: This test is not yet approved or cleared by the [place] FDA. When there are no FDA-approved or cleared tests available, and other criteria are met, FDA can make tests available under an emergency access mechanism called an Emergency Use Authorization (EUA). The EUA for this test is supported by the [place] [facility] [employer] and Human Service's declaration that [...] longer be used). Performed By: #### C VDTB #### [facility] [address] [address] [address] Apollo Rey XR CHEST 2 Von [...] ASHLEY HIGHTOWER Date: 2022-08-25 11:56 Normal [facility] INFLUENZA A AND B AGon 08-23 INFLUENZA A AG Negative Normal NEGATIVE SEE COMMENT [facility] Comment on above: Performed By: #### I NFLUAB #### [facility] [address] [place] [address] Dr. Apollo Rey INFLUENZA B AG Negative Normal NEGATIVE SEE COMMENT [facility] Comment on above: Performed By: #### I NFLUAB #### [facility] [address] [place], [place] [address] Dr. Apollo Rey INTERNAL CONTROLS Within Normal Limits Normal Wi thin Normal Limits [facility] Comment on above: Performed By: #### I NFLUAB #### [facility] [address] [place], [place] [address] Dr. Apollo Rey Vital Signs Date Time Vital Sign Value Performing Clinician Facility 10-18-2023 14:15-0500 Body mass index (BMI) [Ratio] 34.36 kg/m2 Spit[employer]atos[employer]gr DO Work Phone: [facility] 10-18-2023 14:15-0500 Body weight 102.51 kg Lena Dominic DO Work Phone: [facility] 10-18-2023 14:15-0500 Diastolic blood pressure 78 mm[Hg] [employer]gr DO Work Phone: [facility] 10-18-2023 14:15-0500 Systolic blood pressure 126 mm[Hg] Lena Dominic DO Work Phone: [facility] 08-11-2023 14:30-0500 Body height 172.72 cm Urmila Osborn [facility] 08-11-2023 14:30-0500 Body mass index (BMI) [Ratio] 33.75 kg/m2 Urmila Osborn [facility] 08-11-2023 14:30-0500 Body temperature 97.7 [degF] Urmila Osborn [facility] 08-11-2023 14:30-0500 Body weight 100.7 kg Urmila Osborn Other [facility] 08-11-2023 14:30-0500 Respiratory rate 18 /min Urmila Osborn [facility] 08-11-2023 14:30-0500 SaO2% (BldA) [Mass fraction] 98 % Urmila Osborn [facility] 05-15-2023 10:35-0400 Body height 172.72 cm Lorin Christina Other [facility] 05-15-2023 10:35-0400 Body mass index (BMI) [Ratio] 34.97 kg/m2 Lorin Carri Other [facility] 05-15-2023 10:35-0400 Body temperature 97.5 [degF] Lorin Carri [facility] 05-15-2023 10:35-0400 Body weight 104.33 kg Lorin Carri [facility] 05-15-2023 10:35-0400 Diastolic blood pressure 86 mm[Hg] Lorin Carri Other [facility] 05-15-2023 10:35-0400 Respiratory rate 18 /min Lorin Carri Other [facility] 05-15-2023 10:35-0400 SaO2% (BldA) [Mass fraction] 97 % Lorin Carri [facility] 05-15-2023 10:35-0400 Systolic blood pressure 134 mm[Hg] Lorin Carri Other [facility] Encounters Encounter Date Encounter Type Care Provider Facility Start: 12-09-2023 End: 12-09-2023 ambulatory Ezra Marquez Facility:[facility] Start: 11-14-2023 End: 11-14-2023 ambulatory LENA ALFARO Not Available Start: 10-18-2023 End: 10-18-2023 ambulatory LENA DOMINIC Not Available Start: 10-18-2023 End: 10-18-2023 Office outpatient visit 15 minutes Lena Dominic DO Work Phone: [facility] Comment on above: control counse ling; Request for sterilization Start: 09-15-2023 End: 09-15-2023 ambulatory IRVING Sullivan JOHNSON Not Available Start: 08-11-2023 End: 08-11-2023 ambulatory Urmila Osborn [facility] Start: 08-11-2023 Office outpatient vi sit 25 minutes Urmila Osborn [facility] Start: 05-15-2023 End: 05-15-2023 ambulatory Lorin Christina [facility] Start: 05-15-2023 Office outpatient ne w 20 minutes Lorinsuyapa Christina [facility] Start: 01-21-2023 End: 01-22-[address] LENA ALFARO . Facility:[facility] Start: 01-05-2023 End: 01-05-[address] LENA ALFARO . Facility:[facility] Start: 01-05-2023 End: 01-06-[address] LENA ALFARO . Facility:[facility] Start: 10-21-2022 End: 10-21-[address] EZRA MARQUEZ Facility:[facility] Start: 08-25-2022 End: 08-25-[address] EZRA MARQUEZ Facility:[facility] Start: 08-23-2022 End: 08-23-[address] EZRA MARQUEZ Facility:[facility] Procedures Date Procedure Procedure Detail Performing Clinician Start: 10-18-2023 Urine test visual color cmprsn meths Lena Dominic DO Work Phone: Start: 01-05-2023 Cytp cerv/vag auto t hin layer prep mnl screen [facility] DO Work Phone: Plan of Treatment Date Care Activity Detail Author Start: 03-11-2024 Influenza vaccination Influenza Vacc ine (#1) [facility] Comment on above: Postponed from 05/13 (Other Patient Reasons) Start: 01-17-2024 End: 01-17-2024 Patient encounter procedure 01/17/2024 8:30 AM EDT Office Visit [facility] [address] [place] [address] Lena Alfaro DO [address], [place] [id number] [facility] Start: 11-14-2023 End: 11-14-2023 Patient encounter procedure 11/14/2023 2:20 PM EST Consult [facility] [address] [place] [address] Lena Alfaro DO [address] [place] [address] [facility] Immunizations Immunization Date Immunization Notes Care Provider [facility] 09-03-2021 diphtheria, tetanus toxoids and pertussis vaccine [facility] DO Work Phone: [facility] 03-19-2013 human papilloma viru s vaccine, quadrivalent [facility] DO Work Phone: [facility] 10-16-2012 human papilloma viru s vaccine, quadrivalent [facility] DO Work Phone: [facility] 08-14-2012 human papilloma viru s vaccine, quadrivalent [facility] DO Work Phone: [facility] 08-14-2012 meningococcal polysaccharide (groups A, C, Y and W-135) diphtheria toxoid conjugate vaccine (MCV4P) [facility] DO Work Phone: [facility] 08-14-2012 tetanus toxoid, redu severiano diphtheria toxoid, and acellular pertussis vaccine, adsorbed Lena Dominic DO Work Phone: [facility] 11-23-2010 varicella virus vaccine Core y Dominic DO Work Phone: [facility] 03-03-2006 diphtheria, tetanus toxoids and acellular pertussis vaccine, unspecified formulation Lena Dominic DO Work Phone: [facility] 03-03-2006 measles, mumps and r ubella virus vaccine Lena Dominic DO Work Phone: [facility] 03-03-2006 poliovirus vaccine, inactivated Lena Dominic DO Work Phone: [facility] 08-10-2001 diphtheria, tetanus toxoids and acellular pertussis vaccine, unspecified formulation Lena Dominic DO Work Phone: [facility] 08-10-2001 haemophilus influenz ae type b vaccine, PRP-OMP conjugate Lena Dominic DO Work Phone: [facility] 08-10-2001 measles, mumps and r ubella virus vaccine Lena Dominic DO Work Phone: [facility] 08-10-2001 poliovirus vaccine, inactivated Lena Dominic DO Work Phone: [facility] 08-10-2001 varicella virus vaccine Core y Dominic DO Work Phone: [facility] 06-28-2001 influenza virus vacc ine, whole virus Lena Dominic DO Work Phone: [facility] 06-28-2001 influenza virus vacc ine, unspecified formulation Lena Dominic DO Work Phone: [facility] 02-03-2001 diphtheria, tetanus toxoids and acellular pertussis vaccine, unspecified formulation Lena Dominic DO Work Phone: [facility] 02-03-2001 haemophilus influenz ae type b conjugate and Hepatitis B vaccine Lena Dominic DO Work Phone: [facility] 2000 diphtheria, tetanus toxoids and acellular pertussis vaccine, unspecified formulation Lena Dominic DO Work Phone: [facility] 2000 poliovirus vaccine, inactivated Lena Doimnic DO Work Phone: [facility] 2000 diphtheria, tetanus toxoids and acellular pertussis vaccine, unspecified formulation Lena Dominic DO Work Phone: [facility] 2000 haemophilus influenz ae type b vaccine, PRP-OMP conjugate Lena Dominic DO Work Phone: [facility] 2000 poliovirus vaccine, inactivated Lena Dominic DO Work Phone: [facility] 2000 diphtheria, tetanus toxoids and acellular pertussis vaccine, unspecified formulation Lena Dominic DO Work Phone: [facility] 2000 haemophilus influenz ae type b vaccine, PRP-OMP conjugate Lena Dominic DO Work Phone: [facility] 2000 hepatitis B vaccine, pediatric or pediatric/adolescent dosage Lena Dominic DO Work Phone: [facility] 2000 poliovirus vaccine, inactivated Lena Dominic DO Work Phone: [facility] 2000 hepatitis B vaccine, pediatric or pediatric/adolescent dosage Lena Dominic DO Work Phone: [facility] Payers Date Payer Category Payer Self-pay 2023 Medicaid [id number] 2022 Medicaid [id number] 2000 Unknown [id number] 2.16.84 [id number] 2000 Unknown [id number] 2.16.84 [id number] 2000 Unknown [id number] 2.16.84 [id number] 2000 Unknown [id number] 2.16.84 [id number] 2000 Unknown [id number] 2.16.84 [id number] 2000 Unknown [id number] 2.16.84 [id number] 2000 Unknown [id number] 2.16.84 [id number] 2000 Unknown [id number] 2.16.84 [id number] 2000 Unknown [id number] 1959 Unknown [id number] Unknown [id number] 2.16.8 [id number] Social History Date Type Detail Facility Unknown if ever smoked [facility] Start: 09-14-2023 End: 09-15-2023 Sex Assigned At [facility] Start: 03-16-2023 Tobacco smoking stat [facility] Never smoked tobacco [facility] Start: 03-16-2023 Tobacco use and exposure Smokeless tobacco non-user [facility] Start: 10-18-2023 Alcohol intake Lifetime non-d karen (finding) [facility] Start: 09-14-2023 End: 09-15-2023 History of Social function [facility] Within the last year , have you been afraid of your partner or ex-partner? No [facility] How often do you attend congregational or synagogue services? Patient refused [facility] Are you [...] - these days [OSQ] Not at all [facility] (I/We) worried wheth er (my/our) food would run out before (I/we) got money to buy more. DK or Refused [facility] Start: 03-16-2023 Alcohol Comment caffeine: 1-2 cups/d ay [facility] Start: 2000 Sex Assigned At Female [facility] Start: 03-02-2023 Gender identity Identifies as female gender (finding) [facility] History of Present illness Narrative 10-18-2023 Kristina Loving, ANTWAN - 10/18/2023 2:10 PM EST Note Date & Type Note Facility 10-18-2023 History of Presen t illness Narrative Reason for Appointment: Patient ID: Ramirez Dunaway is a 23 y.o. female who presents [...] aura and without status migrainosus, not intractable (CMS/HCC) 09/14/2023 Nausea and vomiting 09/14/2023 Pain in [...] LYSIS 04/01/2023 diagnostic PAP SMEAR 12/01/2021 negative [place] TONSILLECTOMY & ADENOIDECTOMY AGE 12/> 2011 No Known Allergies Review of Systems: Review [...] nursing note reviewed. Exam conducted with a emergency operator present. Vitals: Estimated body mass index is [...] and concerns addressed. Patient verbalizes understanding . [facility] Evaluation note 05-15-2023 Note Date & [...] no improvement in 2 to 3 days [facility] Other Evaluation note Note Date & Type Note Facility Evaluation note Diagnosis control counseling Request for sterilization documented in this encounter [facility] History general Narrative - Reported Note Date & Type Note Facility History general Narrative - Reported Type Medical History Migraine Medical History Fibromyalgia Surgical History adenoidectomy Surgical History laparoscopy [facility] Summary Purpose Family History No Family History Records FoundNo Family History Records FoundNo Family History Records Found Advance Directives No Advanced Directives Records FoundNo Advanced Directives Records FoundNo Advanced Directives Records Found Additional Source Comments INFORMATION SOURCE (unrecogn ized section and content) DATE CREATED AUTHOR 01/23/2023 [facility] DATE CREATED AUTHOR AUTHOR'S ORGANIZ ATION 11/15/2023 [facility] EPIC DATE CREATED AUTHOR AUTHOR'S ORGANIZ ATION 12/13/2023 [facility] REASON FOR VISIT (unrecogniz ed section and content) Reason Comments Contraception Care Teams (unrecognized sec tion and content) [employer] Relationship Specialty Start Date End Date Ezra Marquez MD [address] [facility] [address] [place] [address] PCP - General Family Medicine 03/03/23 FOR [...] BE BASED ON THE PRIMARY CLINICAL RECORDS. [id number]. provides no warranty or guarantee of the accuracy or completeness of information in this document.
== END 2024-01-17 21:48 | disposition home or self-care (01) ==
LOC: LAB 21:47
PROVIDERS: Visit Provider Obstetrics & Gynecology
DX: Z01.419 Encounter for gynecological examination (general) (routine) without abnormal findings (principal)
CPT/HCPCS: G0145

== ENCOUNTER 2024-01-18 11:25 | Outpatient (OUT) | payer OTHER, SELFPAY ==
[2024-01-18 12:37] LABS: Estimated Average Glucose 100 mg/dL; Glycohemoglobin A1C 5.1 % (4.5-6.2)
[2024-01-18 12:50] LABS: HCG Quantitative <1 mIU/mL; Thyroid Stimulating Hormone 1.425 uIU/mL (0.358-3.740)
[2024-01-18 12:54] LABS: Basophils Percent Auto 0.5 % (0.2-2.0); Eosinophils Absolute Auto 0.2 10^3/uL (0.0-0.7); Eosinophils Percent Auto 3.4 % (0.9-7.0); Hematocrit 40.7 % (36.0-48.0); Hemoglobin 14.1 g/dL (12.0-16.0); Immature Granulocytes Abs Auto 0.03 10^3/uL (0.00-0.03); Immature Granulocytes Pct Auto 0.5 % (0.0-0.5); Lymphocytes Absolute Auto 1.6 10^3/uL (1.2-3.8); Lymphocytes Percent Auto 24.3 % (20.5-60.0); Mean Corpuscular HGB Conc 34.6 g/dL (29.9-35.2); Mean Corpuscular Hemoglobin 30.8 pg (26.7-34.0); Mean Corpuscular Volume 88.9 fL (81.0-99.0); Mean Platelet Volume 9.3 fL (9.5-13.5); Monocytes Absolute Auto 0.5 10^3/uL (0.3-0.8); Monocytes Percent Auto 7.3 % (1.7-12.0); Neutrophils Absolute Auto 4.2 10^3/uL (1.4-6.5); Platelet Count 228 10^3/uL (150-450); Red Blood Count 4.58 10^6/uL (4.20-5.40); Red Cell Distribution Width 12.2 % (11.0-15.0); White Blood Count 6.6 10^3/uL (4.0-11.0)
[2024-01-18 13:35] LABS: Free T4 0.86 ng/dL (0.76-1.46)
[2024-01-19 04:08] LABS: Luteinizing Hormone(LH) 45.1 mIU/mL (.)
== END 2024-01-18 11:26 | disposition home or self-care (01) ==
LOC: LAB 11:25
PROVIDERS: PCP Family Medicine; Visit Provider Obstetrics & Gynecology
DX: E28.2 Polycystic ovarian syndrome (principal); R63.5 Abnormal weight gain
CPT/HCPCS: 36415; 82626; 82627; 83001; 83002; 83036; 84439; 84443; 84702; 85025

== ENCOUNTER 2024-12-20 18:04 | Emergency (ER) | payer OTHER, SELFPAY ==
[2024-12-20 18:09] VITALS: BP 145/85; PULSE 130; TEMP 37; O2SAT 100; BMI 31.3
--- OUTSIDE RECORDS SUMMARY | 2024-12-20 18:10 | XMS_ITS | CCD ---
Author Organization [facility] Care Team Providers Care Line Assembly Utility Worker Name Role Phone DOMINIC ., DR PAREDES [...] Unavailable ALMA, DR BAY Primary Care Unavailable Euless, Nahed Consulting Unavailable DOMINIC ., DR PAREDES Consulting Unavailable ALMA, DR BAY Primary Care Unavailable MERCADO, DR WOODY Nuno Admitting Unavailable MERCADO, DR [...] Unavailable HAY ., DR WILSON Consulting Unavailable HOPPER, PETER Consulting Unavailable Lorin Christina Unavailable Urmila Osborn Unavailable Ezra Marquez MD Primary Care Provider [phone] Ezra Marquez Primary Care Unavailable DominicLena Attending Unavailable DominicAndresy Admitting Unavailable LAITH, LUISA Attending Unavailable DOMINIC, LENA Attending Unavailable LAITH LUISA Attending Unavailable DOMINIC, LENA Attending Unavailable DOMINIC, LENA Attending Unavailable DOMINIC, LENA Attending Unavailable LAITH LUISA Attending Unavailable LUISA OZUNA Attending Unavailable KRISTINA BARRERA Attending Unavailable Allergies Allergy Classification Reported Allergen(s) Allergy Type Date of Onset Reaction(s) Facility (1 source) butylvinal Drug Allergy [facility] Repository (1 source) Desonide Drug Allergy [facility] Repository (2 sources) vinyl gloves Propensity to adverse reactions anaphylaxis [facility] Other (1 source) vinyl ether Drug allergy (disorder) 3 [facility] Repository (7 sources) Vinyl Ether Allergy to substance 4 Anaphylaxis [facility] Work Phone: Medications Current Medications Medication Drug Class(es) Dates Sig (Normalized) Sig (Original) amoxicillin 500 mg oral capsule (2 sources) Penicillin-class Antibacterial Start: 07-10-2024 End: 07-17-2024 take 1 capsule by mouth in the morning amoxicillin (Amoxil) 500 MG capsule Indications: Acute non-recurrent pansinusitis Take 1 capsule (500 mg) by mouth in the morning and 1 capsule (500 mg) before bedtime. Do all this for 7 days. 14 capsule 07/10/2024 07/17/2024 Active Ethinyl Estradiol / Levonorgestrel (4 sources) Progestin, Estrogen, Progestin-containin g Intrauterine Device Start: 01-05-2023 take 1 tablet by mouth in the morning Jolessa 0.15-0.03 MG tablet Take 1 tablet by mouth in the morning. 0 01/05/2023 Active Setlakin 0.15-0. 03 MG Oral for 91 Days Active fluticasone propionate 0.05 mg/actuat metered dose nasal spray (10 sources) Corticosteroid Start: 07-10-2024 take 1-2 spray(s) nasal route once daily fluticasone (Flonase) 50 MCG/ACT nasal spray Indications: Acute non-recurrent pansinusitis Administer 1-2 sprays into each nostril Daily Shake gently. Before first use, prime pump. After use, clean tip and replace cap. 16 g 07/10/2024 Active Start: 04-09-2020 take 1 spray(s) nasa l route once daily Fluticasone Propionate 50 MCG/ACT 1 spray in each nostril Nasally Once a day for 10 days Jul, Active phentermine hydrochloride 37.5 mg oral tablet (20 sources) Sympathomimetic Amine Anorectic Start: 07-05-2024 Phentermine Active MG PO July 05, 2024 12:00am Start: 02-16-2024 End: 02-05-2025 Phentermine 37.5 mg tablet A ctive MG PO July 05, 2024 12:00am Completed/Discontinued Medications Medication Drug Class(es) Dates Sig (Normalized) Sig (Original) acetaminophen 325 mg / HYDROcodone bitartrate 5 mg oral tablet (2 sources) Opioid Agonist take 1 tablet by mouth every four hours HYDROcodone-Aceta minophen 5-325 MG TAKE 1 TABLET BY MOUTH EVERY 4 HOURS Oral for 3 Days Not-Taking Albuterol Sulfate 90 mcg/actuation HFA aerosol inhaler (1 source) Start: 10-15-2024 End: 12-10-2024 Albuterol Sulfate 90 mcg/actuation HFA aerosol inhaler Discontinued 2 INH INHALATION EVERY 4-6 HOURS as needed for shortness of breath or wheezing 6.7 October 15, 2024 1:00am December 10, 2024 12:26pm azithromycin 500 mg oral tablet (2 sources) Macrolide Antimicrobial Azithromycin 500 MG Oral for 1 Days Not-Taking cetirizine hydrochloride 10 mg oral tablet (2 sources) Histamine-1 Receptor Antagonist Start: 04-09-2020 take 1 tablet by mouth every twenty-four hours Cetirizine HCl 10 MG 1 tablet Orally Once a day for 30 day(s) Mar, Not-Taking dextromethorphan hydrobromide 15 mg / guaiFENesin 400 mg / pseudoephedrine hydrochloride 60 mg oral tablet (4 sources) alpha-Adrenergic Agonist, Uncompetitive E-yinuoa-F-aspartat e Receptor Antagonist, Sigma-1 Agonist Start: 07-05-2024 End: 07-10-2024 take 1 tablet by mouth once daily pseudoephedrine-D M-GG 60-15-400 MG tablet Take 1 tablet by mouth Daily 07/05/2024 07/10/2024 Discontinued (Other) Start: 07-05-2024 End: 10-15-2024 take 4 tablets by mouth every twenty-four hours as needed Fplkatpvezmtosw-Ap-Zgbygfvdtwg (Capmist Dm) 60-15-400 mg tablet Discontinued 1 TAB PO EVERY 4-6 HOURS as needed for cold symptoms July 05, 2024 12:00am October 15, 2024 12:32pm do not exceed 4 doses per 24 hrs doxycycline hyclate 100 mg oral capsule (2 sources) Tetracycline-class Drug Doxycycl ine Hyclate 100 MG Oral for 14 Days Not-Taking Ethinyl Estradiol / Etonogestrel (2 sources) Progestin, Estrogen NuvaRing Not -Taking fluconazole 150 mg oral tablet (2 sources) Azole Antifungal Fluconazole 150 MG Oral for 6 Days Not-Taking ibuprofen 800 mg oral tablet (2 sources) Nonsteroidal Anti-inflammatory Drug Ibuprofen 800 MG Ora l for 14 Days Not-Taking Ibuprofen 800 MG Oral for 14 Days Not-Taking 24 hr metFORMIN hydrochloride 500 mg extended release oral tablet (5 sources) Biguanide Start: 01-17-2024 End: 01-16-2025 take 1 tablet by mouth every twenty-four hours at mealtime metFORMIN XR (Glucophage-XR) 500 MG 24 hr tablet Indications: PCOS (polycystic ovarian syndrome) , Weight gain Take 1 tablet (500 mg) by mouth in the evening. Take with meals Do not crush, chew, or split. 30 tablet 11 01/17/2024 07/10/2024 Discontinued (Other) methylPREDNISolone 4 mg oral tablet (1 source) Corticosteroid Start: 10-15-2024 End: 12-10-2024 take 1 tablet by mouth once Methylprednisolone (Medrol (Kyle)) 4 mg tablets,dose pack Discontinued 0 PO per package directions October 15, 2024 1:00am December 10, 2024 12:24pm PO PER PKG DIR metroNIDAZOLE 500 mg oral tablet (2 sources) Nitroimidazole Antimicrobial metroNIDAZOLE 500 MG Oral for 10 Days Not-Taking ondansetron 4 mg oral tablet (2 sources) Serotonin-3 Receptor Antagonist Ondansetron HCl 4 MG Oral for 14 Days Not-Taking predniSONE 20 mg oral tablet (2 sources) Start: 05-15-2023 take 1 tablet by mouth every twelve hours predniSONE 20 MG 1 tablet Orally bid for 5 day(s) May, Not-Taking Problems Active Problems Problem Classification Problem Date Documented Date Episodic/Chronic Administrative/social admission (10 sources) Patient encounter status; Translations: [Persons encountering health services in other specified circumstances] Onset: 08-07-2024 08-07-2024 Episodic Chronic obstructive pulmonary disease and bronchiectasis (3 sources) Bronchitis, not specified as acute or chronic; Translations: [Bronchitis] Onset: 08-25-2022 10-15-2024 Episodic Contraceptive and procreative management (5 sources) Presence of (intrauterine) contraceptive device; Translations: [Patient encounter status] Onset: 10-25-2022 10-13-2023 Episodic Headache; including migraine (20 sources) Migraine; Translations: [Migraine, unspecified, not intractable, without status migrainosus] Onset: 09-14-2023 09-14-2023 Chronic Immunizations and screening for infectious disease (2 sources) Encounter for screening for human papillomavirus (HPV); Translations: [Contact with or exposure to other viral diseases] Onset: 01-06-2023 10-15-2024 Episodic Menstrual disorders (20 sources) Excessive and frequent menstruation with irregular cycle; Translations: [Dysmenorrhea] Onset: 01-06-2023 09-14-2023 Chronic Noninfectious gastroenteritis (1 source) Noninfective gastroenteritis and colitis, unspecified; Translations: [NONINFECTIVE GE AND COLITIS UNS] Onset: 10-25-2022 Episodic Other aftercare (1 source) Other manager intermediate (current) drug therapy; Translations: [OTH CUSTODIAL CURRENT DRUG THERAPY] Onset: 10-25-2022 Episodic Other screening for suspected conditions (not mental disorders or infectious disease) (4 sources) Encounter for screening for malignant neoplasm of cervix; Translations: [ENC SCREENING MALIG NEOPLASM CERV] Onset: 01-05-2023 Episodic Other upper respiratory infections (5 sources) Acute pharyngitis, unspecified; Translations: [Acute upper respiratory infection, unspecified] Episodic Unclassified (2 sources) COUGH, UNSPECIFIED; Translations: [COUGH, UNSPECIFIED] Onset: 08-27-2022 Viral infection (1 source) COVID-19; Translations: [COVID-19] Onset: 08-27-2022 Past or Other Problems Problem Classification Problem Date Documented Da te Episodic/Chronic Abdominal pain (16 sources) Left lower quadrant pain; Translations: [Unspecified abdominal pain] Onset: 10-21-2022 Episodic Inflammatory diseases of female pelvic organs (12 sources) Vulvovaginitis; Translations: [Acute vaginitis] Onset: 09-14-2023 09-14-2023 Episodic Nausea and vomiting (12 sources) Nausea and vomiting; Translations: [Nausea with vomiting, unspecified] Onset: 09-14-2023 09-14-2023 Episodic Other connective tissue disease (12 sources) Fibromyalgia; Translations: [Fibromyalgia] Onset: 09-14-2023 09-14-2023 Episodic Other female genital disorders (12 sources) Pain on movement of cervix; Translations: [Unspecified condition associated with female genital organs and menstrual cycle] Onset: 09-14-2023 09-14-2023 Episodic Other nervous system disorders (12 sources) Spasmodic movement; Translations: [Fasciculation] Onset: 09-14-2023 09-14-2023 Episodic Residual codes; unclassified (12 sources) Insomnia; Translations: [Insomnia, unspecified] Onset: 09-14-2023 09-14-2023 Episodic Spondylosis; intervertebral disc disorders; other back problems (12 sources) Instability of lumbosacral joint; Translations: [Spinal instabilities, lumbosacral region] Onset: 09-14-2023 09-14-2023 Episodic Unclassified (1 source) COUGH, UNSPECIFIED; Translations: [COUGH, UNSPECIFIED] Onset: 08-25-2022 Results Test Name Value Interpretation Reference Range Facility Influenza virus B Ag [Presen ce] in Upper respiratory specimen by Rapid immunoassayon 10-15-2024 FLUBV Ag IA.rapid Ql (Nph) Influenza virus B Ag [Presence] in Upper respiratory specimen by Rapid immunoassay [facility] No Panel Informationon 10-15 Influenza Type A (Rapid) Negative [facility] POC SARS CoV-2 Antigen Negative [facility] Uzair 12-09-2023 L Specimen: [id number] Received: 12/09/23 Status: GIDEON Simpson Num: [id number] Spec Type: Surgical Subm Dr: Lena Alfaro Tissues: A Fallopian Tube - Sterilization (BILATERAL FT) Procedures: HE/2, Gross/Micro L2 Age/ Patient Sex Location Account Attending Physician Ramirez Dunaway 23/F LABELL [id number] Lena Alfaro SPEC NUM: [id number] RECD: 12/09/23 STATUS: GIDEON SIMPSON NUM: [id number] ROSARIO: 12/09/23-[address]: Lena Alfaro ENTERED: 12/09/[address]: Isaac,Lab SPEC TYPE: Surgical DEPT: EUGENIO SLAUGHTER ORDERED: HE/2, Gross/Micro L2 ORDERED: HE2, Gross/Micro L2 Pathological Diagnosis Bilateral Fallopian Tubes, [...] 0.5 x 0.2 cm hood-white membranous tissue. [employer] sections are submitted in two cassettes labeled A1-A2. CPT Codes 91967 Specimen: [id number] Received: 12/09/23 Status: GIDEON Simpson Num: [id number] Spec Type: Surgical Subm Dr: Lena Alfaro Tissues: A Fallopian Tube - Sterilization (BILATERAL FT) Procedures: HE/2, Gross/Micro L2 Patient: Ramirez Dunaway [id number] (Continued) Signed (signature on file) Ying Morton MD 12/12/23 1436 Normal [facility] HCG ( test) Ql (U)o n 10-18-2023 Interpretation and review of laboratory results Normal [facility] Healthca re Preg Test, Ur Negative [facility] Quick Strepon 05-15-2023 S. pyogenes Org specific cx Ql (Throat) Negative [facility] Other Quick Strep [facility] Other US PELVIS AND TRANSVAGon US PELVIS [...] by: NA[place]ED [place] Date: 2023-01-21 10:33 Normal [facility] PAP ACOG PANEL 2: 21 to 29on 01-13-2023 . . Normal [facility] Comment on above: Performed By: #### [id number] #### [facility] [address] [place] [address] Dr. Apollo Rey Age Gdln ACOG Testing 21-29 Normal [facility] Comment on above: Performed By: #### [id number] #### [facility] [address] [place] [address] Dr. Apollo Rey DIAGNOSIS: Comment [facility] Comment on above: Result Comment: NEGA TIVE FOR INTRAEPITHELIAL LESION OR MALIGNANCY. Performed By: #### [id number] #### [facility] [address] [place] [address] Dr. Apollo Rey Methodology: Comment [facility] Comment on above: Result Comment: This liquid based ThinPrep(R) pap test was screened with the use of an image guided system. Performed By: #### 4 [id number] #### [facility] [address] [place] [address] Dr. Apollo Rey Note: Comment [facility] Comment on above: Result Comment: The Pap smear is a screening test designed to aid in the detection of premalignant and malignant conditions of the uterine cervix. It is not a diagnostic procedure and should not be used as the sole means of detecting cervical cancer. Both false-positive and false-negative reports do occur. . Performed By: #### [id number] #### [facility] [address] [place] [address] Dr. Apollo Rey Performed by: Comment Normal [facility] Comment on above: Result Comment: David Eugene, Educational Therapist (ASCP) Performed By: #### 4 [id number] #### [facility] [address] [place] [address] Dr. Apollo Rey Reflex Criteria: Comment [facility] Comment on above: Result Comment: The HPV DNA reflex criteria were not met with this specimen result therefore, no HPV testing was performed. . Performed By: #### 4 [id number] #### [facility] [address] [place] [address] Dr. Apollo Rey Specimen adequacy: Comment Normal [facility] Comment on above: Result Comment: Sati sfactory for evaluation. Endocervical and/or squamous metaplastic cells (endocervical component) are present. Performed By: #### 4 [id number] #### [facility] [address] [address] [address] Apollo Rey CBC AUTO DIFFon 01-05-2023 BASO # 0.0 103/ul Normal 0.0-0.1 [facility] Comment on above: Performed By: #### C BC #### [facility] [address] [place] [address] Dr. Apollo Rey Basophils/100 WBC (Bld) 0.5 % Normal 0.2-2.0 [facility] Comment on above: Performed By: #### C BC #### [facility] [address] [place] [address] Dr. Apollo Rey EO # 0.3 103/ul Normal 0.0-0.7 [facility] Comment on above: Performed By: #### C BC #### [facility] [address] [place] [address] Dr. Apollo Rey Eosinophils/100 WBC (Bld) 3.5 % Normal 0.9-7.0 [facility] Comment on above: Performed By: #### C BC #### [facility] [address] [place] [address] Dr. Apollo Rey Erythrocyte distribution width (RBC) [Ratio] 12.1 % Normal 11.0-15.0 [facility] Comment on above: Performed By: #### C BC #### [facility] [address] [place] [address] Dr. Apollo Rey Hematocrit (Bld) [Volume fraction] 41.0 % Normal 36.0-48.0 [facility] Comment on above: Performed By: #### C BC #### [facility] [address] [place] [address] Dr. Apollo Rey Hemoglobin (Bld) [Mass/Vol] 13.8 g/dL Normal 12.0-16.0 [facility] Comment on above: Performed By: #### C BC #### [facility] [address] [place] [address] Dr. Apollo Rey IG # 0.03 10e3/ul Normal 0.00-0.03 [facility] Comment on above: Performed By: #### C BC #### [facility] [address] [place] [address] Dr. Apollo Rey IG % 0.4 % Normal 0.0-0.5 [facility] Comment on above: Performed By: #### C BC #### [facility] [address] [place] [address] Dr. Apollo Rey LYMPH # 1.9 103/ul Normal 1.2-3.8 [facility] Comment on above: Performed By: #### C BC #### [facility] [address] [place] [address] Dr. Apollo Rey Lymphocytes/100 WBC (Bld) 23.0 % Normal 20.5-60.0 [facility] Comment on above: Performed By: #### C BC #### [facility] [address] [place] [address] Dr. Apollo Rey MANUAL DIFF REQ NO Normal [facility] Comment on above: Performed By: #### C BC #### [facility] [address] [place] [address] Dr. Apollo Rey MCH (RBC) [Entitic mass] 30.4 pg Normal 26.7-34.0 [facility] Comment on above: Performed By: #### C BC #### [facility] [address] [place] [address] Dr. Apollo Rey MCHC (RBC) [Mass/Vol] 33.7 g/dL Normal 29.9-35.2 [facility] Comment on above: Performed By: #### C BC #### [facility] [address] [place] [address] Dr. Apollo Rey MCV (RBC) [Entitic vol] 90.3 fL Normal 81.0-99.0 [facility] Comment on above: Performed By: #### C BC #### [facility] [address] [place] [address] Dr. Apollo Rey MONO # 0.5 103/ul Normal 0.3-0.8 [facility] Comment on above: Performed By: #### C BC #### [facility] [address] [place] [address] Dr. Apollo Rey Monocytes/100 WBC (Bld) 6.3 % Normal 1.7-12.0 [facility] Comment on above: Performed By: #### C BC #### [facility] [address] [place] [address] Dr. Apollo Rey NEUT # 5.3 103/ul Normal 1.4-6.5 [facility] Comment on above: Performed By: #### C BC #### [facility] [address] [place] [address] Dr. Apollo Rey Neutrophils/100 WBC (Bld) 66.3 % Normal 43.0-75.0 [facility] Comment on above: Performed By: #### C BC #### [facility] [address] [place] [address] Dr. Apollo Rey Platelet mean volume (Bld) [Entitic vol] 9.0 fL Critically low 9.5-13.5 [facility] Comment on above: Performed By: #### C BC #### [facility] [address] [place] [address] Dr. Apollo Rey PLT 239 103/ul Normal 150-450 [facility] Comment on above: Performed By: #### C BC #### [facility] [address] [place] [address] Dr. Apollo Rey RBC 4.54 106/ul Normal 4.20-5.40 [facility] Comment on above: Performed By: #### C BC #### [facility] [address] [place] [address] Dr. Apollo Rey WBC 8.0 103/ul Normal 4.0-11.0 [facility] Comment on above: Performed By: #### C BC #### [facility] [address] [place] [address] Dr. Apollo Rey Cytology Cervical or vaginal smear or scraping studyon 01-05-2023 [facility] FREE T4on 01-05-2023 Free T4 [Mass/Vol] 0.95 ng/dL Normal 0.76-1.46 [facility] Comment on above: Performed By: #### F T4 #### [facility] [address] [place] [address] Dr. Apollo Rey GLYCOHEMOGLOBIN A1Con 2022 ADA RECOMMENDATION SEE BELOW Normal [facility] Comment on above: Result Comment: ADA RECOMMENDED LIMIT 4.0 - 6.0 ADA THERAPEUTIC TARGET < 7.0 ACTION SUGGESTED > 7.0 Performed By: #### 4 [id number] #### [facility] [address] [address] [address] Apollo Rey Glucose [Mass/Vol] 105 mg/dL Normal [facility] Comment on above: Performed By: #### 4 [id number] #### [facility] [address] [place] [address] Dr. Apollo Rey HbA1c (Bld) [Mass fraction] 5.3 % Normal 4.5-6.2 [facility] Comment on above: Performed By: #### 4 [id number] #### [facility] [address] [place] [address] Dr. Apollo Rey PROTIMEon 01-05-2023 INR Coag (PPP) [Relative time] 0.95 {INR} Normal [facility] Comment on above: Performed By: #### 4 [id number] #### [facility] [address] [place] [address] Dr. Apollo Rey INR GUIDELINES SEE BELOW Normal [facility] Comment on above: Result Comment: RAY RED INR: 2.0 - 3.0 CONDITIONS NOT LISTED BELOW 2.5 - 3.5 FOR PROSTHETIC HEART VALVE REPLACEMENT 2.5 - 3.5 RECURRENT THROMBOSIS Performed By: #### 4 [id number] #### [facility] [address] [place] [address] Dr. Apollo Rey PT Coag (PPP) [Time] 10.1 s Normal 9.0-11.6 [facility] Comment on above: Performed By: #### 4 [id number] #### [facility] [address] [place] [address] Dr. Apollo Rey PTTon 01-05-2023 aPTT Coag (Bld) [Time] 29.0 s Normal 22.3-36.2 [facility] Comment on above: Performed By: #### 4 [id number] #### [facility] [address] [place] [address] Dr. Apollo Rey TSHon 01-05-2023 TSH 1.102 uIU/mL Normal 0.358-3.740 [facility] Comment on above: Performed By: #### T SH #### [facility] [address] [place] [address] Dr. Apollo Rey CBC AUTO DIFFon 10-21-2022 BASO # 0.0 103/ul Normal 0.0-0.1 [facility] Comment on above: Performed By: #### C BC #### [facility] [address] [place] [address] Dr. Apollo Rey Basophils/100 WBC (Bld) 0.4 % Normal 0.2-2.0 [facility] Comment on above: Performed By: #### C BC #### [facility] [address] [place] [address] Dr. Apollo Rey EO # 0.1 103/ul Normal 0.0-0.7 [facility] Comment on above: Performed By: #### C BC #### [facility] [address] [place] [address] Dr. Apollo Rey Eosinophils/100 WBC (Bld) 1.5 % Normal 0.9-7.0 [facility] Comment on above: Performed By: #### C BC #### [facility] [address] [place] [address] Dr. Apollo Rey Erythrocyte distribution width (RBC) [Ratio] 12.9 % Normal 11.0-15.0 [facility] Comment on above: Performed By: #### C BC #### [facility] [address] [place] [address] Dr. Apollo Rey Hematocrit (Bld) [Volume fraction] 38.2 % Normal 36.0-48.0 [facility] Comment on above: Performed By: #### C BC #### [facility] [address] [place] [address] Dr. Apollo Rey Hemoglobin (Bld) [Mass/Vol] 13.5 g/dL Normal 12.0-16.0 [facility] Comment on above: Performed By: #### C BC #### [facility] [address] [place] [address] Dr. Apollo Rey IG # 0.02 10e3/ul Normal 0.00-0.03 [facility] Comment on above: Performed By: #### C BC #### [facility] [address] [place] [address] Dr. Apollo Rey IG % 0.3 % Normal 0.0-0.5 [facility] Comment on above: Performed By: #### C BC #### [facility] [address] [place] [address] Dr. Apollo Rey LYMPH # 2.0 103/ul Normal 1.2-3.8 [facility] Comment on above: Performed By: #### C BC #### [facility] [address] [place] [address] Dr. Apollo Rey Lymphocytes/100 WBC (Bld) 26.3 % Normal 20.5-60.0 [facility] Comment on above: Performed By: #### C BC #### [facility] [address] [place] [address] Dr. Apollo Rey MANUAL DIFF REQ NO Normal [facility] Comment on above: Performed By: #### C BC #### [facility] [address] [place] [address] Dr. Apollo Rey MCH (RBC) [Entitic mass] 30.8 pg Normal 26.7-34.0 [facility] Comment on above: Performed By: #### C BC #### [facility] [address] [place] [address] Dr. Apollo Rey MCHC (RBC) [Mass/Vol] 35.3 g/dL Critically high 29.9-35.2 [facility] Comment on above: Performed By: #### C BC #### [facility] [address] [place] [address] Dr. Apollo Rey MCV (RBC) [Entitic vol] 87.0 fL Normal 81.0-99.0 [facility] Comment on above: Performed By: #### C BC #### [facility] [address] [place] [address] Dr. Apollo Rey MONO # 0.5 103/ul Normal 0.3-0.8 [facility] Comment on above: Performed By: #### C BC #### [facility] [address] [place] [address] Dr. Apollo Rey Monocytes/100 WBC (Bld) 6.4 % Normal 1.7-12.0 [facility] Comment on above: Performed By: #### C BC #### [facility] [address] [place] [address] Dr. Apollo Rey NEUT # 4.9 103/ul Normal 1.4-6.5 [facility] Comment on above: Performed By: #### C BC #### [facility] [address] [place] [address] Dr. Apollo Rey Neutrophils/100 WBC (Bld) 65.1 % Normal 43.0-75.0 [facility] Comment on above: Performed By: #### C BC #### [facility] [address] [place] [address] Dr. pAollo Rey Platelet mean volume (Bld) [Entitic vol] 8.8 fL Critically low 9.5-13.5 [facility] Comment on above: Performed By: #### C BC #### [facility] [address] [place] [address] Dr. Apollo Rey PLT 206 103/ul Normal 150-450 [facility] Comment on above: Performed By: #### C BC #### [facility] [address] [place] [address] Dr. Apollo Rey RBC 4.39 106/ul Normal 4.20-5.40 [facility] Comment on above: Performed By: #### C BC #### [facility] [address] [place] [address] Dr. Apollo Rey WBC 7.5 103/ul Normal 4.0-11.0 [facility] Comment on above: Performed By: #### C BC #### [facility] [address] [address] ABD/PELV W CONon [...] PETER HOPPER Date: 2022-10-21 17:45 Normal [facility] ER URINE PROFILEon 3 Bilirubin Ql (U) Negative Normal NEGATIVE [facility] Comment on above: Performed By: #### 4 [id number] #### [facility] [address] [place] [address] Dr. Apollo Rey Clarity (U) CLEAR Normal CLEAR [facility] Comment on above: Performed By: #### 4 [id number] #### [facility] [address] [place] [address] Dr. Apollo Rey Color (U) LT. YELLOW Normal YELLOW [facility] Comment on above: Performed By: #### 4 [id number] #### [facility] [address] [place] [address] Dr. Apollo TAVAREZ A micrscopic examination will be performed if indicated. Normal [facility] Comment on above: Performed By: #### 4 [id number] #### [facility] [address] [place] [address] Dr. Apollo Rey Glucose Ql (U) Negative Normal NEGATIVE [facility] Comment on above: Performed By: #### 4 [id number] #### [facility] [address] [place] [address] Dr. Apollo Rey Hemoglobin Ql (U) Negative Normal NEGATIVE [facility] Comment on above: Performed By: #### 4 [id number] #### [facility] [address] [place] [address] Dr. Apollo Rey Ketones Ql (U) Negative Normal NEGATIVE [facility] Comment on above: Performed By: #### 4 [id number] #### [facility] [address] [place] [address] Dr. Apollo Rey LEUKOCYTES TRACE Abnormal NEGATIVE [facility] Comment on above: Performed By: #### 4 [id number] #### [facility] [address] [place] [address] Dr. Apollo Rey Nitrite Ql (U) Negative Normal NEGATIVE [facility] Comment on above: Performed By: #### 4 [id number] #### [facility] [address] [place] [address] Dr. Apollo Rey pH (U) 6.0 [pH] Normal 5-9 [facility] Comment on above: Performed By: #### 4 [id number] #### [facility] [address] [place] [address] Dr. Apollo Rey SPEC GRAVITY 1.020 Normal 1.005-<=1.025 [facility] Comment on above: Performed By: #### 4 [id number] #### [facility] [address] [place] [address] Dr. Apollo Rey UA PROTEIN Negative Normal NEGATIVE/ TRACE [facility] Comment on above: Performed By: #### 4 [id number] #### [facility] [address] [place] [address] Dr. Apollo Rey UR MICRO IND NOT INDICATED Normal [facility] Comment on above: Performed By: #### 4 [id number] #### [facility] [address] [place] [address] Dr. Apollo Rey Urobilinogen Qn (U) 0.2 {Ирина'U}/dL Normal 0.2 - 1. 0 [facility] Comment on above: Performed By: #### 4 [id number] #### [facility] [address] [place] [address] Dr. Apollo Rey URon 10-21-2022 , QUAL Negative Normal NEGATIVE [facility] Comment on above: Performed By: #### P REGU #### [facility] [address] [place] [address] Dr. Apollo Rey PROF 14(COMP METB)on 023 Albumin [Mass/Vol] 4.1 g/dL Normal 3.4-5.0 [facility] Comment on above: Performed By: #### C MP #### [facility] [address] [place] [address] Dr. Apollo Rey Albumin/Globulin [Mass ratio] 1.2 {ratio} Normal [facility] Comment on above: Performed By: #### C MP #### [facility] [address] [place] [address] Dr. Apollo Rey ALP [Catalytic activity/Vol] 85 U/L Normal 46-116 [facility] Comment on above: Performed By: #### C MP #### [facility] [address] [place] [address] Dr. Apollo Rey ALT [Catalytic activity/Vol] 18 U/L Normal 14-59 [facility] Comment on above: Performed By: #### C MP #### [facility] [address] [place] [address] Dr. Apollo Rey Anion gap [Moles/Vol] 12.7 mmol/L Normal [facility] Comment on above: Performed By: #### C MP #### [facility] [address] [address] [address] Apollo Rey AST [Catalytic activity/Vol] 14 U/L Critically low 15-37 [facility] Comment on above: Performed By: #### C MP #### [facility] [address] [address] [address] Apollo Rey Bilirubin [Mass/Vol] 0.3 mg/dL Normal 0.2-1.0 [facility] Comment on above: Performed By: #### C MP #### [facility] [address] [place] [address] Dr. Apollo Rey Calcium [Mass/Vol] 8.8 mg/dL Normal 8.5-10.1 [facility] Comment on above: Performed By: #### C MP #### [facility] [address] [place] [address] Dr. Apollo Rey Chloride [Moles/Vol] 103 mmol/L Normal 98-107 [facility] Comment on above: Performed By: #### C MP #### [facility] [address] [address] [address] Apollo Rey CO2 [Moles/Vol] 24.9 mmol/L Normal 21.0-32.0 [facility] Comment on above: Performed By: #### C MP #### [facility] [address] [address] [address] Apollo Rey Creatinine [Mass/Vol] 0.72 mg/dL Normal 0.55-1.02 [facility] Comment on above: Performed By: #### C MP #### [facility] [address] [address] [address] Apollo Rey EGFR-AF [place]LANDER >60 Normal >=60 [facility] Comment on above: Performed By: #### C MP #### [facility] [address] [address] [address] Apollo Rey EGFR-NON AF [place]LANDER >60 Normal >=60 [facility] Comment on above: Performed By: #### C MP #### [facility] [address] [address] [address] Apollo Rey Globulin (S) [Mass/Vol] 3.4 g/dL Normal [facility] Comment on above: Performed By: #### C MP #### [facility] [address] [address] [address] Apollo Rey Glucose [Mass/Vol] 96 mg/dL Normal 74-106 [facility] Comment on above: Performed By: #### C MP #### [facility] [address] [address] [address] Apollo Rey Potassium [Moles/Vol] 3.6 mmol/L Normal 3.5-5.1 [facility] Comment on above: Performed By: #### C MP #### [facility] [address] [address] [address] Apollo Rey Protein [Mass/Vol] 7.5 g/dL Normal 6.4-8.2 [facility] Comment on above: Performed By: #### C MP #### [facility] [address] [address] [address] Apollo Rey Sodium [Moles/Vol] 137 mmol/L Normal 136-145 [facility] Comment on above: Performed By: #### C MP #### [facility] [address] [address] [address] Apollo Rey Urea nitrogen [Mass/Vol] 9.0 mg/dL Normal 7.0-18.0 [facility] Comment on above: Performed By: #### C MP #### [facility] [address] [address] [address] Apollo Rey Urea nitrogen/Creatinine [Mass ratio] 12.5 mg/mg Normal [facility] Comment on above: Performed By: #### C MP #### [facility] [address] [address] [address] Apollo Rey Covid-19 PCR (CVDTB)on 08-12 SARS-CoV-2 (COVID-19) RNA TAYLOR+probe Ql (Unsp spec) Detected Critically abnormal NOT DETECTED [facility] Comment on above: Result Comment: This test is not yet approved or cleared by the [place] FDA. When there are no FDA-approved or cleared tests available, and other criteria are met, FDA can make tests available under an emergency access mechanism called an Emergency Use Authorization (EUA). The EUA for this test is supported by the [employer] of Health and Human Service's declaration that [...] used). Performed By: #### C VDTB #### [facility] [address] [address] [address] Apollo Rey XR CHEST 2 Von [...] ASHLEY HIGHTOWER Date: 2022-08-25 11:56 Normal [facility] INFLUENZA A AND B AGon 08-23 INFLUENZA A AG Negative Normal NEGATIVE SEE COMMENT [facility] Comment on above: Performed By: #### I NFLUAB #### [facility] [address] [place] [address] Dr. Apollo Rey INFLUENZA B AG Negative Normal NEGATIVE SEE COMMENT [facility] Comment on above: Performed By: #### I NFLUAB #### [facility] [address] [place] [address] Dr. Apollo Rey INTERNAL CONTROLS Within Normal Limits Normal Wi thin Normal Limits [facility] Comment on above: Performed By: #### I NFLUAB #### [facility] [address] [place] [address] Dr. Apollo Rey Vital Signs Date Time Vital Sign Value Performing Clinician Facility 12-10-2024 12:30-0400 Body height 172.72 cm [facility] 12-10-2024 12:30-0400 Body mass index (BMI) [Ratio] 31.4 kg/m2 [facility] 12-10-2024 12:30-0400 Body temperature 98.1 [degF] [facility] 12-10-2024 12:30-0400 Body weight 93.61 kg [facility] 12-10-2024 12:30-0400 Diastolic blood pressure 77 mm[Hg] [facility] 12-10-2024 12:30-0400 Heart rate 106 /min [facility] 12-10-2024 12:30-0400 Respiratory rate 12 /min [facility] 12-10-2024 12:30-0400 SaO2% (BldA) [Mass fraction] 96 % [facility] 12-10-2024 12:30-0400 Systolic blood pressure 141 mm[Hg] [facility] 11-07-2024 08:43-0500 Body mass index (BMI) [Ratio] 31.32 kg/m2 Luisa LAW Work Phone: [facility] 11-07-2024 08:43-0500 Body weight 93.44 kg Luisa LAW Work Phone: [facility] 11-07-2024 08:43-0500 Diastolic blood pressure 70 mm[Hg] Luisa LAW Work Phone: [facility] 11-07-2024 08:43-0500 Systolic blood pressure 112 mm[Hg] Luisa LAW Work Phone: [facility] 10-15-2024 12:08-0500 Body height 172.72 cm [facility] 10-15-2024 12:08-0500 Body mass index (BMI) [Ratio] 32.7 kg/m2 [facility] 10-15-2024 12:08-0500 Body temperature 98 [degF] [facility] 10-15-2024 12:08-0500 Body weight 97.69 kg [facility] 10-15-2024 12:08-0500 Diastolic blood pressure 80 mm[Hg] [facility] 10-15-2024 12:08-0500 Heart rate 98 /min [facility] 10-15-2024 12:08-0500 Respiratory rate 19 /min [facility] 10-15-2024 12:08-0500 SaO2% (BldA) [Mass fraction] 98 % [facility] 10-15-2024 12:08-0500 Systolic blood pressure 111 mm[Hg] [facility] 08-07-2024 13:44-0500 Body mass index (BMI) [Ratio] 33.42 kg/m2 Luisa Riley PA Work Phone: [facility] 08-07-2024 13:44-0500 Body weight 99.7 kg Luisa Riley PA Work Phone: [facility] 08-07-2024 13:44-0500 Diastolic blood pressure 80 mm[Hg] Luisa Riley PA Work Phone: [facility] 08-07-2024 13:44-0500 Systolic blood pressure 120 mm[Hg] Luisa Laith PA Work Phone: [facility] 07-10-2024 13:45-0400 Body height 172.7 cm Kristina Mosquedamer PA Work Phone: [facility] 07-10-2024 13:45-0400 Body mass index (BMI) [Ratio] 34 kg/m2 Kristina Hemmer PA Work Phone: [facility] 07-10-2024 13:45-0400 Body temperature 98.49 [degF] Kristina Hemmer PA Work Phone: [facility] 07-10-2024 13:45-0400 Body weight 101.42 kg Kristina Hemmer PA Work Phone: [facility] 07-10-2024 13:45-0400 Diastolic blood pressure 76 mm[Hg] Kristina Hemmer PA Work Phone: [facility] 07-10-2024 13:45-0400 Heart rate 86 /min Kristina Hemmer PA Work Phone: [facility] 07-10-2024 13:45-0400 Respiratory rate 16 /min Kristina Hemmer PA Work Phone: [facility] 07-10-2024 13:45-0400 SaO2% (BldA) [Mass fraction] 97 % Kristina Mosquedamer PA Work Phone: [facility] 07-10-2024 13:45-0400 Systolic blood pressure 114 mm[Hg] Kristina Mosquedamer PA Work Phone: [facility] 07-05-2024 10:12-0400 Body height 172.72 cm [facility] 07-05-2024 10:12-0400 Body mass index (BMI) [Ratio] 33.7 kg/m2 [facility] 07-05-2024 10:12-0400 Body temperature 97.7 [degF] [facility] 07-05-2024 10:12-0400 Body weight 100.47 kg [facility] 07-05-2024 10:12-0400 Diastolic blood pressure 90 mm[Hg] [facility] 07-05-2024 10:12-0400 Heart rate 106 /min [facility] 07-05-2024 10:12-0400 Respiratory rate 17 /min [facility] 07-05-2024 10:12-0400 SaO2% (BldA) [Mass fraction] 97 % [facility] 07-05-2024 10:12-0400 Systolic blood pressure 131 mm[Hg] [facility] 05-15-2024 10:40-0400 Body height 172.7 cm Luisa Ozuna PA Work Phone: [facility] 05-15-2024 10:40-0400 Body mass index (BMI) [Ratio] 34.59 kg/m2 Luisa Ozuna PA Work Phone: [facility] 05-15-2024 10:40-0400 Body weight 103.19 kg Luisa Ozuna PA Work Phone: [facility] 05-15-2024 10:40-0400 Diastolic blood pressure 78 mm[Hg] Luisa Ozuna PA Work Phone: [facility] 05-15-2024 10:40-0400 Systolic blood pressure 112 mm[Hg] Luisa Ozuna PA Work Phone: [facility] 10-18-2023 14:15-0500 Body mass index (BMI) [Ratio] 34.36 kg/m2 Lena Dominic DO Work Phone: [facility] 10-18-2023 14:15-0500 Body weight 102.51 kg Lena Dominic DO Work Phone: [facility] 10-18-2023 14:15-0500 Diastolic blood pressure 78 mm[Hg] Lena Dominic DO Work Phone: [facility] 10-18-2023 14:15-0500 Systolic blood pressure 126 mm[Hg] Lena Dominic DO Work Phone: [facility] 08-11-2023 14:30-0500 Body height 172.72 cm Urmila Osborn Other [facility] Other 08-11-2023 14:30-0500 Body mass index (BMI) [Ratio] 33.75 kg/m2 Urmila Osborn Other [facility] Other 08-11-2023 14:30-0500 Body temperature 97.7 [degF] Urmila Osborn Other [facility] Other 08-11-2023 14:30-0500 Body weight 100.7 kg Urmila Osborn Other [facility] Other 08-11-2023 14:30-0500 Respiratory rate 18 /min Urmila Osborn Other [facility] Other 08-11-2023 14:30-0500 SaO2% (BldA) [Mass fraction] 98 % Urmila Saundersarney Other [facility] Other 05-15-2023 10:35-0400 Body height 172.72 cm Lorin Carri Other [facility] Other 05-15-2023 10:35-0400 Body mass index (BMI) [Ratio] 34.97 kg/m2 Lorin Carri Other [facility] Other 05-15-2023 10:35-0400 Body temperature 97.5 [degF] Lorin Carri Other [facility] Other 05-15-2023 10:35-0400 Body weight 104.33 kg Lorin Carri Other [facility] Other 05-15-2023 10:35-0400 Diastolic blood pressure 86 mm[Hg] Lorin Carri Other [facility] Other 05-15-2023 10:35-0400 Respiratory rate 18 /min Lorin Carri Other [facility] Other 05-15-2023 10:35-0400 SaO2% (BldA) [Mass fraction] 97 % Lorin Carri Other [facility] Other 05-15-2023 10:35-0400 Systolic blood pressure 134 mm[Hg] Lorin Carri Other [facility] Other Encounters Encounter Date Encounter Type Care Provider Facility Start: 12-10-2024 End: 12-10-2024 ambulatory [facility] Work Phone: Start: 12-10-2024 End: 12-10-2024 Patient encounter procedure [facility] Work Phone: Start: 11-07-2024 End: 11-07-2024 Bamboo flowsheet Luisa Ozuna PA Work Phone: [facility] Start: 11-07-2024 End: 11-07-2024 Bamboo flowsheet Luisa Ozuna PA Work Phone: [facility] Start: 11-07-2024 End: 11-07-2024 ambulatory LUISA OZUNA Not Available Start: 11-07-2024 End: 11-07-2024 Office outpatient visit 15 minutes Luisa Ozuna PA Work Phone: [facility] Comment on above: Encounter for weight management Start: 10-15-2024 End: 10-15-2024 Patient encounter procedure [facility] Work Phone: Start: 08-07-2024 End: 08-07-2024 Office outpatient visit 15 minutes Luisa Ozuna PA Work Phone: [facility] Comment on above: Encounter for weight management Start: 07-10-2024 End: 07-10-2024 Bamboo flowsheet Kristina Barrera PA Work Phone: [facility] Start: 07-10-2024 End: 07-10-2024 Bamboo flowsheet Kristina Barrera PA Work Phone: [facility] Start: 07-10-2024 End: 07-10-2024 ambulatory KRISTINA BARRERA Not Available Start: 07-10-2024 End: 07-10-2024 Office outpatient visit 15 minutes Kristina Barrera PA Work Phone: [facility] Comment on above: Acute non-recurrent pansinusitis (Primary Dx) Start: 07-05-2024 End: 07-05-2024 ambulatory [facility] Work Phone: Start: 07-05-2024 End: 07-05-2024 Patient encounter procedure [facility] Work Phone: Start: 05-15-2024 End: 05-15-2024 Bamboo flowsheet Luisa LAW Work Phone: [facility] Start: 05-15-2024 End: 05-15-2024 Bamboo flowsheet Luisa LAW Work Phone: [facility] Start: 05-15-2024 End: 05-15-2024 Office outpatient visit 5 minutes Luisa LAW Work Phone: [facility] Comment on above: Encounter for weight management Start: 05-15-2024 End: 05-15-2024 ambulatory LUISA LAITH Not Available Start: 04-17-2024 End: 04-17-2024 ambulatory LUISA LAITH Not Available Start: 03-20-2024 End: 03-20-2024 ambulatory LENA DOMINIC Not Available Start: 02-16-2024 End: 02-16-2024 ambulatory LENA DOMINIC Not Available Start: 01-17-2024 End: 01-17-2024 ambulatory LENA DOMINIC Not Available Start: 12-15-2023 End: 12-15-2023 ambulatory LUISA LAITH Not Available Start: 12-09-2023 End: 12-09-2023 ambulatory Rugen M Alma Facility:[facility] Start: 11-14-2023 End: 11-14-2023 ambulatory LENA DOMINIC Not Available Start: 10-18-2023 End: 10-18-2023 Office outpatient visit 15 minutes Lena Dominic DO Work Phone: [facility] Comment on above: control counse ling; Request for sterilization Start: 08-11-2023 End: 08-11-2023 ambulatory Urmila Osborn Other [facility] Other Start: 08-11-2023 Office outpatient vi sit 25 minutes Urmila Osborn [facility] Start: 05-15-2023 End: 05-15-2023 ambulatory Lorin Pottermond Other [facility] Other Start: 05-15-2023 Office outpatient ne w [...] Urine test visual color cmprsn meths Lena Alfaro DO Work Phone: Start: 01-05-2023 Cytp cerv/vag auto t hin layer prep mnl screen Lena Alfaro DO Work Phone: Plan of Treatment Date Care Activity Detail Author Start: 02-05-2025 End: 02-05-2025 Patient encounter procedure 02/05/2025 8:30 AM EDT Office Visit [facility] [address] [place] [address] Luisa Ozuna PA [address] [place] [address] [facility] Start: 11-07-2024 End: 11-07-2024 Patient encounter procedure 11/07/2024 8:30 AM EST Office Visit [facility] [address] [place] [phone] Luisa Ozuna, PA [address] [place], [place] [id number] Arrived [facility] Comment on above: Arrived Start: 08-07-2024 End: 08-07-2024 Patient encounter procedure 08/07/2024 8:30 AM EST Office Visit [facility] [address] [place] [phone] Luisa Ozuna, PA [address] [place], [place] [id number] [facility] Start: 05-15-2024 End: 05-15-2024 Patient encounter procedure 05/15/2024 10:30 AM EDT Office Visit [facility] [address] [place] [id number] Luisa Ozuna, PA [address] [place] [address] [place] [address] Arrived [facility] Comment on above: Arrived Start: 05-13-2024 Influenza vaccination Influenz a Vaccine (#1) [facility] Start: 03-11-2024 Influenza vaccination Influenz a Vaccine (#1) [facility] Comment on above: Postponed from 05/13 (Other Patient Reasons) Start: 01-17-2024 End: 01-17-2024 Patient encounter procedure 01/17/2024 8:30 AM EDT Office Visit [facility] [address] [place] [phone] Lena Alfaro DO [address] [place] [place], [place] [phone] [facility] Start: 11-14-2023 End: 11-14-2023 Patient encounter procedure 11/14/2023 2:20 PM EST Consult [facility] [address] [place] [address] Dominic, Lena, DO [address] [place] [address] [place] [address] [facility] Immunizations Immunization Date Immunization Notes Care Provider Fa cility 09-03-2021 diphtheria, tetanus toxoids and pertussis vaccine Lena Dominic DO Work Phone: [facility] 03-19-2013 human papilloma viru s vaccine, quadrivalent Lena Dominic DO Work Phone: [facility] 10-16-2012 human papilloma viru s vaccine, quadrivalent Lena Dominic DO Work Phone: [facility] [place] 08-14-2012 human papilloma viru s vaccine, quadrivalent Lena Dominic DO Work Phone: [facility] 08-14-2012 meningococcal polysaccharide (groups A, C, Y and W-135) diphtheria toxoid conjugate vaccine (MCV4P) Lena Dominic DO Work Phone: [facility] 08-14-2012 tetanus toxoid, redu severiano diphtheria toxoid, and acellular pertussis vaccine, adsorbed Lena Dominic DO Work Phone: [facility] 11-23-2010 varicella virus vaccine Core y Dominic DO Work Phone: [facility] 03-03-2006 diphtheria, tetanus toxoids and acellular pertussis vaccine, unspecified formulation Lena Dominic DO Work Phone: [facility] 03-03-2006 measles, mumps and r ubella virus vaccine Lena Dominic DO Work Phone: [facility] 03-03-2006 poliovirus vaccine, inactivated Lena Dominic DO Work Phone: [facility] 08-10-2001 diphtheria, tetanus toxoids and acellular pertussis vaccine, unspecified formulation Lena Dominic DO Work Phone: [facility] 08-10-2001 haemophilus influenz ae type b vaccine, PRP-OMP conjugate Lena Dominic DO Work Phone: [facility] 08-10-2001 measles, mumps and r ubella virus vaccine Lena Dominic DO Work Phone: [facility] 08-10-2001 poliovirus vaccine, inactivated Lena Dominic DO Work Phone: [facility] 08-10-2001 varicella virus vaccine Core y Dominic DO Work Phone: [facility] 06-28-2001 influenza virus vacc ine, whole virus Lena Dominic DO Work Phone: [facility] 06-28-2001 influenza virus vacc ine, unspecified formulation Lena Dominic DO Work Phone: [facility] 02-03-2001 diphtheria, tetanus toxoids and acellular pertussis vaccine, unspecified formulation Lena Dominic DO Work Phone: [facility] 02-03-2001 haemophilus influenz ae type b conjugate and Hepatitis B vaccine Lena Dominic DO Work Phone: [facility] 2000 diphtheria, tetanus toxoids and acellular pertussis vaccine, unspecified formulation Lena Dominic DO Work Phone: [facility] 2000 poliovirus vaccine, inactivated Lena Dominic DO Work Phone: [facility] 2000 diphtheria, tetanus toxoids and acellular pertussis vaccine, unspecified formulation Lena Dominic DO Work Phone: [facility] 2000 haemophilus influenz ae type b vaccine, PRP-OMP conjugate Lena Dominic DO Work Phone: [facility] 2000 poliovirus vaccine, inactivated Lena Dominic DO Work Phone: [facility] 2000 diphtheria, tetanus toxoids and acellular pertussis vaccine, unspecified formulation Lena Dominic DO Work Phone: [facility] 2000 haemophilus influenz ae type b vaccine, PRP-OMP conjugate Lena Dominic DO Work Phone: [facility] 2000 hepatitis B vaccine, pediatric or pediatric/adolescent dosage Lena Dominic DO Work Phone: [facility] 2000 poliovirus vaccine, inactivated Lena Dominic DO Work Phone: [facility] 2000 hepatitis B vaccine, pediatric or pediatric/adolescent dosage Lena Dominic DO Work Phone: [facility] Payers Date Payer Category Payer Self-pay 2023 Private Health Insurance [facility] MEDICAID [id number] 2023 Medicaid [id number] 2022 Medicaid [id number] 2000 Unknown [id number] [id number]. 593 2000 Unknown [id number] 2.16.840.1.641248.3.579.2. 593 2000 Unknown [id number] 2.16.840.1.910861.3.579.2. 593 2000 Unknown [id number] 2.16.840.1.992526.3.579.2. 593 2000 Unknown [id number] 2.16.840.1.885750.3.579.2. 593 2000 Unknown [id number] 2.16.840.1.178573.3.579.2. 593 2000 Unknown [id number] 2.16.840.1.626795.3.579.2. 9 2000 Unknown [id number] 2.16.840.1.210451.3.579.2. 1259 2000 Unknown [id number] 2.16.840.1.419428.3.579.2. 9 2000 Unknown [id number] 2.16.840.1.965173.3.579.2. 1259 2000 Unknown [id number] 2.16.840.1.491164.3.579.2. 9 2000 Unknown [id number] 2.16.840.1.030072.3.579.2. 9 2000 Unknown [id number] 2.16.840.1.784816.3.579.2. 9 2000 Unknown [id number] 2.16.840.1.401672.3.579.2. 9 2000 Unknown [id number] 2.16.840.1.899763.3.579.2. 1259 1959 Unknown [id number] Medicaid [employer] [id number] Unknown [id number] 2.16.840.1.264504.3.579.2. 531 Unknown [facility] [place] [id number] Social History Date Type Detail Facility Unknown if ever smoked [facility] Other Start: 09-14-2023 End: 08-07-2024 Sex Assigned At [facility] Start: 03-16-2023 End: 12-09-2023 Tobacco smoking status [place] Never smoked tobacco [facility] Start: 03-16-2023 Tobacco use and exposure Smokeless tobacco non-user [facility] Start: 10-18-2023 End: 11-07-2024 Alcohol intake Lifetime non-drinker (finding) [facility] Start: 09-14-2023 End: 08-07-2024 History of Social function [facility] Within the last year , have you been afraid of your partner or ex-partner? No [facility] How often do you attend moravian or rastafari services? Patient refused [facility] Are you [...] Gender identity Identifies as female gender (finding) [facility] Start: 12-10-2024 Sex Female (finding) [facility] Clinical Notes 05-15-2023 to 11-07-2024 ANI Pretty - 11/07/2024 8:30 AM EST Note Date & Type Note Facility 11-07-2024 History of Presen t illness Narrative Reason for Appointment: Patient ID: Ramirez Dunaway is a 24 y.o. female who presents for Weight Management Patient presents today for Weight Management Consult. MEDICATIONS Current Outpatient Medications Medication Instructions fluticasone (Flonase) 50 MCG/ACT nasal spray 1-2 sprays, Each Nostril, Daily, Shake gently. Before first use, prime pump. After use, clean tip and replace cap. phentermine (ADIPEX-P) 37.5 mg, Oral, Daily before breakfast phentermine (ADIPEX-P) 37.5 mg, Oral, Daily before breakfast ALLERGIES Allergies Allergen Reactions Vinyl Ether Anaphylaxis PROBLEMS Active Ambulatory Problems Diagnosis Date Noted Cervical motion tenderness 09/14/2023 Dysmenorrhea 09/14/2023 Fibromyalgia 09/14/2023 Insomnia 09/14/2023 Menorrhagia with irregular cycle 09/14/2023 Migraine headache ([facility]) 09/14/2023 Migraine without aura and without status migrainosus, not intractable ([facility]) 09/14/2023 Nausea and vomiting 09/14/2023 Pain in pelvis 09/14/2023 Spinal instability of lumbosacral region 09/14/2023 Twitching 09/14/2023 Vaginitis and vulvovaginitis 09/14/2023 Encounter for weight management 08/07/2024 Resolved Ambulatory Problems Diagnosis Date Noted No Resolved Ambulatory Problems Past Medical History: Diagnosis Date BMI 29.0-29.9,adult COVID-19 virus RNA test result positive at limit of detection 08/25/2022 Encounter for insertion of Mirena IUD ETD (Eustachian tube dysfunction), left Family planning History of CT scan Intrauterine device surveillance Migraines ([facility]) Well woman exam HISTORY PAST MEDICAL HISTORY SOCIAL HISTORY Past Medical History: Diagnosis Date BMI 29.0-29.9,adult COVID-19 virus RNA test result positive at limit of detection 08/25/2022 COVID Positive Encounter for insertion of Mirena IUD ETD (Eustachian tube dysfunction), left Family planning History of CT scan Abdomen and Pelvis shows bladder wall thickening. Intrauterine device surveillance Migraines ([facility]) Well woman exam Social History Tobacco Use Smoking status: Never Smokeless tobacco: Never Vaping Use Vaping status: Never Used Substance Use Topics Alcohol use: Never Comment: caffeine: 1-2 cups/day Drug use: Yes Types: Marijuana FAMILY HISTORY Family History Problem Relation Name Age of Onset Hypertension Mother Rehana Stroke Mother Rehana Allergies Father Stroke Maternal Grandfather Woody Heart disease Maternal Grandfather Woody Hypertension Paternal Grandfather Macario Colon cancer Paternal Grandfather Macario No Known Problems Daughter No Known Problems Son SURGICAL HISTORY Past Surgical History: Procedure Laterality Date ABDOMINAL SURGERY 12/09/2023 ADENOIDECTOMY IUD INSERTION Mirena LAPAROSCOPY DIAGNOSTIC / BIOPSY / ASPIRATION / LYSIS 04/01/2023 diagnostic PAP SMEAR 12/01/2021 negative [place] TONSILLECTOMY & ADENOIDECTOMY AGE 12/> 2012 TUBAL LIGATION Bilateral 12/09/2023 REVIEW OF SYSTEMS Review of Systems: Review of Systems Constitutional: Negative. HENT: Negative. Eyes: Negative. Respiratory: Negative. Cardiovascular: Negative. Gastrointestinal: Negative. Genitourinary: Negative. Musculoskeletal: Negative. Skin: Negative. Neurological: Negative. All other systems reviewed and are negative. Hematological: Negative. Endocrine: Negative. Allergic/Immunologic: Negative. OBJECTIVE Objective: Physical Exam Constitutional: Appearance: Normal appearance. She is normal weight. HENT: Head: Normocephalic. Cardiovascular: Rate and Rhythm: Normal rate. Pulses: Normal pulses. Pulmonary: Effort: Pulmonary effort is normal. Breath sounds: Normal breath sounds. Abdominal: Palpations: Abdomen is soft. Musculoskeletal: General: Normal range of motion. Neurological: General: No focal deficit present. Mental Status: She is alert and oriented to person, place, and time. Psychiatric: Mood and Affect: Mood normal. Behavior: Behavior normal. Thought Content: Thought content normal. Judgment: Judgment normal. Vitals and nursing note reviewed. Vitals: Estimated body mass index is 31.32 kg/m as calculated from the following: Height as of 24: 5' 8 . Weight as of this encounter: 206 lb. BP: 112/70 No LMP recorded. ASSESSMENT & PLAN ICD-10-CM 1. Encounter for weight management Z76.89 phentermine (Adipex-P) 37.5 MG tablet Patient presents today for Adipex prescription. The possibility of Ozempic for future use has been discussed. Weight and blood pressure has been captured and it has been discussed/reiterated the importance of keeping a food journal, proper nutrition/diet, and exercise regimen. Patient verbalized understanding. Patient has lost more than 5% of her initial body weight Follow Up: Patient will follow up for weight check and blood pressure check. She has lost 14 lbs and doing well Documented by ANI Pretty on behalf of: ANI Pretty documented in this encounter [facility] 10-15-2024 Evaluation note Diagnosis Onset Date Resolution Bronchitis acute October 15, 2024 11:22am Contact with and (suspected) exposure to covid-19 noneactive October 15 11:22am [facility] Work Phone: [phone] 595-272311-26-2024 History of Present illness Narrative* ANI Pretty - 08/07/2024 8:30 AM EST Reason for Appointment: Patient ID: Ramirez Dunaway is a 24 y.o. female who presents for Weight Management Patient presents today for Weight Management Consult. MEDICATIONS Current Outpatient Medications Medication Instructions fluticasone (Flonase) 50 MCG/ACT nasal spray 1-2 sprays, Each Nostril, Daily, Shake gently. Before first use, prime pump. After use, clean tip and replace cap. phentermine (ADIPEX-P) 37.5 mg, Oral, Daily before breakfast ALLERGIES Allergies Allergen Reactions Vinyl Ether Anaphylaxis PROBLEMS Active Ambulatory Problems Diagnosis Date Noted Cervical motion tenderness 09/14/2023 Dysmenorrhea 09/14/2023 Fibromyalgia 09/14/2023 Insomnia 09/14/2023 Menorrhagia with irregular cycle 09/14/2023 Migraine headache (CMS/HCC) 09/14/2023 Migraine without aura and without status migrainosus, not intractable (CMS/HCC) 09/14/2023 Nausea and vomiting 09/14/2023 Pain in pelvis 09/14/2023 Spinal instability of lumbosacral region 09/14/2023 Twitching 09/14/2023 Vaginitis and vulvovaginitis 09/14/2023 Encounter for weight management 08/07/2024 Resolved Ambulatory Problems Diagnosis Date Noted No Resolved Ambulatory Problems Past Medical History: Diagnosis Date BMI 29.0-29.9,adult COVID-19 virus RNA test result positive at limit of detection 08/25/2022 Encounter for insertion of Mirena IUD ETD (Eustachian tube dysfunction), left Family planning History of CT scan Intrauterine device surveillance Migraines (CMS/HCC) Well woman exam HISTORY PAST MEDICAL HISTORY SOCIAL HISTORY Past Medical History: Diagnosis Date BMI 29.0-29.9,adult COVID-19 virus RNA test result positive at limit of detection 08/25/2022 COVID Positive Encounter for insertion of Mirena IUD ETD (Eustachian tube dysfunction), left Family planning History of CT scan Abdomen and Pelvis shows bladder wall thickening. Intrauterine device surveillance Migraines ([facility]) Well woman exam Social History Tobacco Use Smoking status: Never Smokeless tobacco: Never Vaping Use Vaping status: Never Used Substance Use Topics Alcohol use: Never Comment: caffeine: 1-2 cups/day Drug use: Yes Types: Marijuana FAMILY HISTORY Family History Problem Relation Name Age of Onset Hypertension Mother Rehana Stroke Mother Rehana Allergies Father Stroke Maternal Grandfather Woody Heart disease Maternal Grandfather Woody Hypertension Paternal Grandfather Macario Colon cancer Paternal Grandfather Macario No Known Problems Daughter No Known Problems Son SURGICAL HISTORY Past Surgical History: Procedure Laterality Date ABDOMINAL SURGERY 12/09/2023 ADENOIDECTOMY IUD INSERTION Mirena LAPAROSCOPY DIAGNOSTIC / BIOPSY / ASPIRATION / LYSIS 04/01/2023 diagnostic PAP SMEAR 12/01/2021 negative [place] TONSILLECTOMY & ADENOIDECTOMY AGE 12/2011 TUBAL LIGATION Bilateral 12/09/2023 REVIEW OF SYSTEMS Review of Systems: Review of Systems Constitutional: Negative. HENT: Negative. Eyes: Negative. Respiratory: Negative. Cardiovascular: Negative. Gastrointestinal: Negative. Genitourinary: Negative. Musculoskeletal: Negative. Skin: Negative. Neurological: Negative. All other systems reviewed and are negative. Hematological: Negative. Endocrine: Negative. Allergic/Immunologic: Negative. OBJECTIVE Objective: Physical Exam Constitutional: Appearance: Normal appearance. She is normal weight. HENT: Head: Normocephalic. Cardiovascular: Rate and Rhythm: Normal rate. Pulses: Normal pulses. Pulmonary: Effort: Pulmonary effort is normal. Breath sounds: Normal breath sounds. Abdominal: Palpations: Abdomen is soft. Musculoskeletal: General: Normal range of motion. Neurological: General: No focal deficit present. Mental Status: She is alert and oriented to person, place, and time. Psychiatric: Mood and Affect: Mood normal. Behavior: Behavior normal. Thought Content: Thought content normal. Judgment: Judgment normal. Vitals and nursing note reviewed. Vitals: Estimated body mass index is 34 kg/m as calculated from the following: Height as of 07/10/24: 5' 8 . Weight as of 07/10/24: 223 lb 9.6 oz. BP: No LMP recorded. ASSESSMENT & PLAN ICD-10-CM 1. Encounter for weight management Z76.89 phentermine (Adipex-P) 37.5 MG tablet Patient presents today for Adipex prescription. Patient desires additional weigh loss and she is currently taking metformin along with working out to achieve further results. The possibility of Ozempic for future use has been discussed. Weight and blood pressure has been captured and it has been discussed/reiterated the importance of keeping a food journal, proper nutrition/diet, and exercise regimen. Patient verbalized understanding. Patient has lost more than 5% of her initial body weight Follow Up: Patient is to return to the office in 3 month for further evaluation to assess patient progress. Weight and blood pressure will need to be obtained in order for patient to receive 4th Adipex prescription. Documented by ANI Pretty on behalf of: ANI Pretty [id number] History of Present illness Narrative* ANI Avila - 07/10/2024 1:30 PM EDT Images from the original note were not included. Subjective Patient ID: Ramirez Dunaway is a 23 y.o. female who presents for sinus issues. Ramirez is present today for evaluation of her sinuses. Admits sinus pressure, headaches, post nasaldrainage, sore throat, bilateral ear discomfort, cough with clear phlegm, nasal congestion, runny nose with green phlegm, fatigue, eyes watery and goupy. This all started on Tuesday and she went [facility] urgent care on 07/05/24. Dx. Viral URI, Rx'd Capmist but she never got it from the pharmacy (they never filled it and then ran out of stock). She has been taking Mucinex OTC. She did get tested for COVID, Influenza A-B and was both negative. Current Outpatient Medications on File Prior to Visit Medication Sig Dispense Refill [DISCONTINUED] [id number] 60-15-400 MG tablet Take 1 tablet by mouth Daily phentermine (Adipex-P) 37.5 MG tablet Take 1 tablet (37.5 mg) by mouth in the morning. Take before meals. 90 tablet 0 [DISCONTINUED] amoxicillin (Amoxil) 500 MG capsule Take 1 capsule (500 mg) by mouth in the morning and 1 capsule (500 mg) in the evening and 1 capsule (500 mg) before bedtime. Do all this for 10 days. 30 capsule 0 [DISCONTINUED] metFORMIN XR (Glucophage-XR) 500 MG 24 hr tablet Take 1 tablet (500 mg) by mouth in the evening. Take with meals Do not crush, chew, or split. 30 tablet 11 [DISCONTINUED] phentermine (Adipex-P) 37.5 MG tablet Take 1 tablet (37.5 mg) by mouth in the morning. Take before meals. 30 tablet 0 [DISCONTINUED] phentermine (Adipex-P) 37.5 MG tablet Take 1 tablet (37.5 mg) by mouth in the morning. Take before meals. 30 tablet 0 No current facility-administered medications on file prior to visit. I have reviewed and reconciled the history and medication list with the patient today. Allergies Allergen Reactions Vinyl Ether Anaphylaxis Social History Tobacco Use Smoking status: Never Smokeless tobacco: Never Vaping Use Vaping status: Never Used Substance Use Topics Alcohol use: Never Comment: caffeine: 1-2 cups/day Drug use: Yes Types: Marijuana Family History Problem Relation Name Age of Onset Hypertension Mother Rehana Stroke Mother Rehana Allergies Father Stroke Maternal Grandfather Woody Heart disease Maternal Grandfather Woody Hypertension Paternal Grandfather Macario Colon cancer Paternal Grandfather Macario No Known Problems Daughter No Known Problems Son Past Medical History: Diagnosis Date BMI 29.0-29.9,adult COVID-19 virus RNA test result positive at limit of detection 08/25/2022 COVID Positive Encounter for insertion of Mirena IUD ETD (Eustachian tube dysfunction), left Family planning History of CT scan Abdomen and Pelvis shows bladder wall thickening. ( Intrauterine device surveillance Migraines (CMS/HCC) Well woman exam Past Surgical History: Procedure Laterality Date ABDOMINAL SURGERY 12/09/2023 ADENOIDECTOMY IUD INSERTION Mirena LAPAROSCOPY DIAGNOSTIC / BIOPSY / ASPIRATION / LYSIS 04/01/2023 diagnostic PAP SMEAR 12/01/2021 negative [place] TONSILLECTOMY & ADENOIDECTOMY AGE 12/> 2012 TUBAL LIGATION Bilateral 12/09/2023 Visit Vitals BP 114/76 Pulse 86 Temp 98.5 F Resp 16 Ht 5' 8 Wt 223 lb 9.6 oz SpO2 97% BMI 34.00 kg/m OB Status Having periods Smoking Status Never BSA 2.2 m Review of Systems Constitutional: Positive for fatigue. Negative for chills and fever. HENT: Positive for congestion, ear pain, postnasal drip, rhinorrhea, sinus pressure, sinus pain andsore throat. Eyes: Positive for discharge. Respiratory: Positive for cough. Negative for shortness of breath and wheezing. Cardiovascular: Negative for chest pain, palpitations and leg swelling. Gastrointestinal: Negative for abdominal pain, constipation, diarrhea, nausea and vomiting. Neurological: Positive for headaches. Objective Physical Exam Constitutional: General: She is not in acute distress. Appearance: She is well-developed. She is obese. She is ill-appearing. HENT: Head: Normocephalic and atraumatic. Right Ear: Ear canal normal. A middle ear effusion is present. Left Ear: Ear canal normal. A middle ear effusion is present. Nose: Congestion present. Right Turbinates: Swollen. Left Turbinates: Swollen. Right Sinus: Maxillary sinus tenderness and frontal sinus tenderness present. Left Sinus: Maxillary sinus tenderness and frontal sinus tenderness present. Mouth/Throat: Mouth: Mucous membranes are moist. Pharynx: Posterior oropharyngeal erythema (Marked) present. Eyes: General: No scleral icterus. Conjunctiva/sclera: Conjunctivae normal. Cardiovascular: Rate and Rhythm: Normal rate and regular rhythm. Heart sounds: Normal heart sounds. No murmur heard. Pulmonary: Effort: Pulmonary effort is normal. No respiratory distress. Breath sounds: Normal breath sounds. No wheezing, rhonchi or rales. Comments: Intermittent dry cough Lymphadenopathy: Cervical: Cervical adenopathy (Mild bilat anterior cervical) present. Skin: General: Skin is warm and dry. Neurological: General: No focal deficit present. Mental Status: She is alert and oriented to person, place, and time. Psychiatric: Mood and Affect: Mood normal. Behavior: Behavior normal. Assessment/Plan Diagnoses and all orders for this visit: Acute non-recurrent pansinusitis - amoxicillin (Amoxil) 500 MG capsule; Take 1 capsule (500 mg) by mouth in the morning and 1 capsule (500 mg) before bedtime. Do all this for 7 days. - fluticasone (Flonase) 50 MCG/ACT nasal spray; Administer 1-2 sprays into each nostril Daily Shakegently. Before first use, prime pump. After use, clean tip and replace cap. Start the above as directed. Reviewed potential s/e with patient. Encouraged probiotic while on antibiotic. Increase water intake, get plenty of rest. Can use Flonase for symptomatic relief. Tylenol/Motrin prn. Follow up if no improvement in one week. Note provided for pt's work today for her appointment. Follow up if symptoms worsen or fail to improve. documented in this [id number] History of Present illness Narrative* Jo-Ann Hammer - 05/15/2024 10:30 AM EDT Reason for Appointment: Patient ID: Ramirez Dunaway is a 23 y.o. female who presents for Weight Management Patient presents today for a weight management consultation. Patient has been prescribed Adipex andshe is here for her 4th prescription. Today's Vitals: Estimated body mass index is 34.59 kg/m as calculated from the following: Height as of this encounter: 5' 8 . Weight as of this encounter: 227 lb 8 oz. Previous Weight/BMI: Wt Readings from Last 2 Encounters: 05/15/24 227 lb 8 oz 04/17/24 229 lb BMI Readings from Last 2 Encounters: 05/15/24 34.59 kg/m 04/17/24 34.82 kg/m Allergies as of 05/15/2024 (No Known Allergies) Past Medical History: Diagnosis Date BMI 29.0-29.9,adult COVID-19 virus RNA test result positive at limit of detection 08/25/2022 COVID Positive Encounter for insertion of mirena IUD ETD (Eustachian tube dysfunction), left Family planning History of CT scan Abdomen and Pelvis shows bladder wall thickening. Intrauterine device surveillance Migraines (CMS/HCC) Well woman exam Past Surgical History: Procedure Laterality Date ABDOMINAL SURGERY 12/09/2023 ADENOIDECTOMY IUD INSERTION Mirena LAPAROSCOPY DIAGNOSTIC / BIOPSY / ASPIRATION / LYSIS 04/01/2023 diagnostic PAP SMEAR 12/01/2021 negative [place] TONSILLECTOMY & ADENOIDECTOMY AGE 12/> 2012 TUBAL LIGATION Bilateral 12/09/2023 Assessment/Plan Encounter Diagnosis Name Primary? Encounter for weight management Adipex: Patient presents today for 4th Adipex prescription. Patients weight and blood pressure has been captured and discussed with the patient. I have discussed/reiterated the importance of keeping a food journal, proper nutrition/diet, and exercise regimen while taking Adipex. Patient verbalized understanding and was given a printed prescription signed by provider to take to their local pharmacy. Follow Up: Patient is to return to the office in 1 month for further evaluation to assess patient progress. Weight and blood pressure will need to be obtained in order for patient to receive next prescription. Documented by: Jo-Ann Hammer on behalf of ANI Pretty documented in this encounterCox [id number] History of Present illness Narrative* Kristina Loving, [employer]RIBUT[employer] LEAD - 10/18/2023 2:10 PM EST Reason for Appointment: Patient ID: Ramirez Dunaway [...] LYSIS 04/01/2023 diagnostic PAP SMEAR 12/01/2021 negative [place] TONSILLECTOMY & ADENOIDECTOMY AGE 12/> 2012 No Known Allergies Review of Systems: Review [...] nursing note reviewed. Exam conducted with a magazine supervisor present. Vitals: Estimated body mass index is 34.36 kg/m as calculated from the following: Height as of 03/03/23: 5' 8 . Weight as of this encounter: 226 lb. BP: 126/78 No LMP recorded (lmp unknown). Assessment/Plan Encounter Diagnoses Name Primary? control counseling Request for sterilization Pt desires permanent sterilization. Patient does not want anymore children. The patient understandsthe procedure is considered permanent and not reversible. Failure rates reviewed with patient. Alternatives discussed. [facility] Consent obtained and reviewed. Will perform robotic laparoscopic bilateralsalpingectomy. Documented by Kristina Loving LPN on behalf of: Lena Alfaro DO documented in this encounterCox [id number] Evaluation note* Encounter Date Diagnosis Assessment Notes Treatment Notes Treatment Clinical Notes Jul, Viral upper respiratory illness (ICD-10 - J06.9) Illness appears to be viral in nature. Instructed patient to use Flonase nasal spray to relieve nasal congestion. OTC sinus medication per lable instructions. Instructed patient to increase fluid intake and rest. If symptoms continue greater than 7 to 10 days follow up with PCP. All questions and concerns addressed. Patient verbalizes understanding. [facility] Other 09-03-2023 Evaluation note* Encounter Date Diagnosis Assessment Notes Treatment Notes Treatment Clinical Notes May, Sore throat (ICD-10 - J02.9) May, Pharyngitis, unspecified etiology (ICD-10 - J02.9) Drink plenty fluids, get plenty of rest. Take Tylenol or Motrin as needed for aches pains or fevers. Take the prednisone as prescribed until gone. Follow-up with your family physician if no improvement in 2 to 3 days [facility] Other Evaluation note* Diagnosis control counseling Request for sterilization documented in this encounter [facility] HealthcareEvaluation noteNo assessment information availableKettering Health [facility] Work Phone: Evaluation note* Diagnosis Acute non-recurrent pansinusitis- Primary documented in this encounter [facility] HealthcareEvaluation note* Diagnosis Encounter for weight management documented in this encounter [facility] HealthcareEvaluation note* Diagnosis Encounter for weight management documented in this encounter [facility] HealthcareEvaluation note* Diagnosis Encounter for weight management documented [facility] encounter [facility] Narrative - Reported* Type Description Date Medical History Migraine Medical History Fibromyalgia Surgical History adenoidectomy Surgical History laparoscopy [facility] Other Summary Purpose Family History Relationship Condition Age at Onset Recorded Date/T cesario mother Family history of mental disorder Unknown Hypertension Unknown Advance Directives Advance Directive Response Recorded Date/ Time Advance Directives No July 05, 2024 10:10am Chief Complaint and Reason for Visit Chief Complaint sore throat, ear ziggy n Chief Complaint Admit Date Wheezing, Cough, Sinus congestion Februa 2024 11:22am molar tooth pain December 10, 2024 12: 22pm Reason for Visit Admit Date October 15, 2024 1 1:22am Contact with and (suspected) exposure to covid-19 October 15, 2024 11:22am Additional Source Comments INFORMATION SOURCE (unrecogn ized section and content) DATE CREATED AUTHOR 01/23/2023 [facility] DATE CREATED AUTHOR AUTHOR'S ORGANIZ ATION 12/13/2023 [facility] DATE CREATED AUTHOR AUTHOR'S ORGANIZ ATION 11/09/2024 [facility] EPIC REASON FOR VISIT (unrecogniz ed section and content) Reason Comments Contraception Reason Comments Weight Management Care Teams (unrecognized sec tion and content) Line Assembly Utility Worker Relationship Specialty Start Date End Date Ezra Marquez MD [address] [facility] [address] [place] [address] PCP - General Family Medicine 03/03/23 Team Status: Active Member Role Status Dates Ezra Marquez MD Primary Care Provider Active Team Status: Inactive Member Role Status Dates Ezra Marquez MD Primary Care Provider Active S tart: July 05, 2024 End: July 05, 2024 Susannah Daniel APRN Attending Provider Active Start: July 05, 2024 End: July 05, 2024 [employer] Utility Worker Relationship Specialty Start Date End Date Ezra Marquez MD [address] [facility] [address] [place] [address] PCP - General Family Medicine 03/03/23 [employer] Worker Relationship Specialty Start Date End Date Ezra Marquez MD [address] [facility] [address] [place] [address] PCP - General Family Medicine 03/03/23 [employer] Utility Worker Relationship Specialty Start Date End Date Ezra Marquez MD [address] [facility] [address] [place] [address] PCP - General Family Medicine 03/03/23 [employer] Utility Worker Relationship Specialty Start Date End Date Ezra Marquez MD [address] [facility] [address] [place] [address] PCP - General Family Medicine 03/03/23 [employer] Utility Worker Relationship Specialty Start Date End Date Ezra Marquez MD [address] [facility] [address] [place] [address] PCP - General Family Medicine 03/03/23 Team Status: Inactive Member Role Status Dates Ezra Marquez MD Primary Care Provider Active S tart: October 15, 2024 End: October 15, 2024 Laverne Brock APRN Attending Provider Active S tart: October 15, 2024 End: October 15, 2024 Team Status: Inactive Member Role Status Dates Ezra Marquez MD Primary Care Provider Active S tart: December 10, 2024 End: December 10, 2024 Laverne Brock APRN Attending Provider Active S tart: December 10, 2024 End: December 10, 2024 Goals (unrecognized section and content) Goals may be documented in a n alternate section FOR RECORDS PERTAINING TO PATIENTS WHO ARE [...] BE BASED ON THE PRIMARY CLINICAL RECORDS. [employer] [facility]. provides no warranty or guarantee of the accuracy or completeness of information in this document.
--- NOTE | 2024-12-20 18:17 | ED_ITS ---
HPI HPI - Extremity Injury (Upper) General Chief Complaint: Extremity Injury, Upper Stated Complaint: R SHOULDER PAIN Time Seen by Provider: 12/20/24 18:04 Source: patient Mode of arrival: walk-in History of Present Illness HPI narrative: Patient is a 24-year-old female who presents to the emergency department for a 5-day history of right shoulder pain radiating into the right side of the neck. Patient denies any specific mechanism of injury, however she states she has been using her right arm to operate a manual drive vehicle and she and her significant other took their child to a bouncy house prior to noticing pain in the shoulder and neck. She states pain started in the right glenohumeral joint radiating into the right side of the neck and she now feels pain into the right scapula. She describes the pain as a spasm. Pain is significantly worse with raising the right arm. She has no concern for . No peripheral paresthesias into the arm. Related Data Home Medications ?Medication ?Instructions ?Recorded ?Confirmed fexofenadine 180 mg tablet 180 mg PO DAILY 11/28/23 12/20/24 ([facility]) phentermine 37.5 mg tablet 37.5 mg PO DAILY 12/20/24 12/20/24 (Adipex-P) Previous Rx's ?Medication ?Instructions ?Recorded ibuprofen 800 mg tablet 800 mg PO Q8H PRN pain 14 days #40 12/09/23 tabs ketorolac 10 mg tablet 10 mg PO TID PRN pain #10 tabs 12/20/24 methocarbamol 750 mg tablet 750 mg PO TID PRN pain #20 tabs 12/20/24 prednisone 20 mg tablet See Rx Instructions .Route 12/20/24 .COMPLEX #12 tabs Allergies Allergy/AdvReac Type Severity Reaction Status Date / Time No Known Drug Allergies Allergy Verified 12/20/24 18:09 Opioid HPI Opioid Management Most Recent Pain and Opioid Data: Last Pain Scale 8 12/20/24 18:14 12/20/24 Review of Systems ROS Constitutional Denies: fever or chills Ears, nose, mouth, and throat Denies: throat pain or nasal congestion Cardiovascular Denies: chest pain Respiratory Denies: shortness of breath or cough Gastrointestinal Denies: nausea or vomiting Musculoskeletal Reports: back pain, neck pain, extremity pain, extremity swelling, joint pain and limited range of motion Neurological Denies: headache, numbness in extremities or weakness in extremities Hematologic/Lymphatic Denies: easy bruising or easy bleeding PFSH PFSH Medical History (Updated 12/20/24 @ 18:55 by ANI Chaudhary) Palpitations ?R00.2 - Palpitations (ICD-10) Endometriosis ?N80.9 - Endometriosis, unspecified (ICD-10) Postoperative nausea and vomiting ?R11.2 - Nausea with vomiting, unspecified (ICD-10) ?Z98.890 - Other specified postprocedural states (ICD-10) Request for sterilization ?Z30.2 - Encounter for sterilization (ICD-10) Fibromyalgia ?M79.7 - Fibromyalgia (ICD-10) Anxiety ?F41.9 - Anxiety disorder, unspecified (ICD-10) Migraine ?G43.909 - Migraine, unspecified, not intractable, without status migrainosus (ICD-10) GERD (gastroesophageal reflux disease) ?K21.9 - Gastro-esophageal reflux disease without esophagitis (ICD-10) Tachycardia ?R00.0 - Tachycardia, unspecified (ICD-10) Pelvic pain ?R10.2 - Pelvic and perineal pain (ICD-10) Dysmenorrhea ?N94.6 - Dysmenorrhea, unspecified (ICD-10) Menorrhagia ?N92.0 - Excessive and frequent menstruation with regular cycle (ICD-10) Surgical History (Updated 11/28/23 @ 12:41 by Aletha Justice NP) H/O laparoscopy (04/01/23) ?Z98.890 - Other specified postprocedural states (ICD-10) H/O adenoidectomy ?Z90.89 - Acquired absence of other organs (ICD-10) Family History (Updated 03/21/23 @ 09:14 by Aletha Justice NP) Other Delayed recovery from anesthesia Family history of hypertension Family history of leukemia Family history of myocardial infarction Family history of stroke Social History Within the past year, how often did you have a drink containing alcohol: monthly or less Smoking status: Never smoker Non-prescribed substance use: denies use Previous occupational history: Fertilizer Applicator Highest level of school completed/degree received: some college, no degree Little interest or pleasure in doing things: not at all Feeling down, depressed, or hopeless: not at all Exam Narrative Exam Narrative: Gen.: Awake, alert, in no distress Head: Normocephalic, atraumatic ENT: Moist mucous membranes Respiratory: No respiratory distress Extremities: Pain with abduction of the right shoulder, tenderness over the right glenohumeral joint, right paracervical muscles of the neck and right sc apula. No obvious deformity or sulcus sign. Normal inspector material disposition strength in the right hand. Psych: Normal mood and affect Neuro: No focal neuro deficit Skin: Warm, dry, intact Constitutional Vital Signs, click to edit/add: Last Vital Signs Temp 98.6 F 12/20/24 18:09 Pulse 130 H 12/20/24 18:09 Resp 18 12/20/24 18:09 BP 145/85 H 12/20/24 18:09 Pulse Ox 100 12/20/24 18:09 O2 Del Method Room Air 12/20/24 18:09 Course Vital Signs Vital signs: Vital Signs Temperature 98.6 F 12/20/24 18:09 Pulse Rate 130 H 12/20/24 18:09 Respiratory Rate 18 12/20/24 18:09 Blood Pressure 145/85 H 12/20/24 18:09 Pulse Oximetry 100 12/20/24 18:09 Oxygen Delivery Method Room Air 12/20/24 18:09 Temperature 98.6 F 12/20/24 18:09 Pulse Rate 130 H 12/20/24 18:09 Respiratory Rate 18 12/20/24 18:09 Blood Pressure 145/85 H 12/20/24 18:09 Pulse Oximetry 100 12/20/24 18:09 Oxygen Delivery Method Room Air 12/20/24 18:09 MDM - Extremity Injury (Upper) [facility] Narrative Medical decision making narrative: Exam is consistent with musculoskeletal pain of the right shoulder radiating into the right side of the neck and scapula. She has pain with abduction of the right arm, possible rotator cuff injury. She was medicated for pain in the ER, vital signs were rechecked prior to discharge. X-rays show no evidence of acute bony abnormalities. Patient treated for musculoskeletal pain with a steroid taper, NSAIDs and muscle relaxants. Follow-up with orthopedics and return to the emergency department if symptoms change or worsen. SUPERVISED APC VISIT, PHYSICIAN ATTESTATION: Based on the medical record the care appears appropriate. ? Medical Records Attestation: I reviewed the patient's medical records. Imaging Data XR cervical spine/xr shoulder: Attestation: I have reviewed the pertinent imaging results. Discharge Plan Discharge Chief Complaint: Extremity Injury, Upper Clinical Impression: Right shoulder strain, Cervical sprain Patient Disposition: Home, Self-Care Time of Disposition Decision: 18:55 Condition: Good Prescriptions / Home Meds: New prednisone 20 mg tablet See Rx Instructions .ROUTE .COMPLEX Qty: 12 0RF Rx Instructions: 3 tabs daily for 2 days, then 2 tabs daily for 2 days, then 1 tab daily for 2 days ketorolac 10 mg tablet 10 mg PO TID PRN (Reason: pain) Qty: 10 0RF methocarbamol 750 mg tablet 750 mg PO TID PRN (Reason: pain) Qty: 20 0RF No Action fexofenadine [[facility]] 180 mg tablet 180 mg PO DAILY ibuprofen 800 mg tablet 800 mg PO Q8H PRN (Reason: pain) 14 Days Qty: 40 0RF phentermine [Adipex-P] 37.5 mg tablet 37.5 mg PO DAILY Rx Instructions: must administer 30 minutes before or 1-2 hours after breakfast Print Language: Hungarian Instructions: Muscle Strain (ED) Referrals: PHU MARQUEZ [Primary Care Provider] - 1 week Pelon Maldonado MD [Physician] - As needed
[2024-12-20] MEDS: HYDROCODONE/ACET 5-325 MG TABLET 1 TAB PO (18:22)
[2024-12-20] MEDS: METHOCARBAMOL 500 MG TABLET 1000 MG PO (18:23)
[2024-12-20] MEDS: KETOROLAC TROMETHAMINE 10 MG TABLET PO (18:23)
[2024-12-20 19:01] VITALS: PULSE 90
== END 2024-12-20 19:02 | disposition home or self-care (01) ==
PROVIDERS: Emergency Provider Emergency Medicine; PCP Family Medicine
DX: S46.911A Strain of unspecified muscle, fascia and tendon at shoulder and upper arm level, right arm, initial encounter (principal); S13.4XXA Sprain of ligaments of cervical spine, initial encounter; X58.XXXA Exposure to other specified factors, initial encounter
CPT/HCPCS: 72040; 73030; 99284